=== PATIENT | female | born 1970 | race Caucasian/White ===

== ENCOUNTER 2020-11-25 15:29 | Outpatient (RCR) | payer BC, SELFPAY ==
[2020-11-25] MEDS: COVID-19 VACC, MRNA(PFIZER)/PF 30 MCG/0.3 ML SYRINGE IM (17:25)
[2020-12-16] MEDS: COVID-19 VACC, MRNA(PFIZER)/PF 30 MCG/0.3 ML SYRINGE IM (16:40)
== END 2020-11-25 23:59 ==
LOC: IMMUN 15:29
PROVIDERS: PCP Nurse Practitioner Family; Referring Provider Family Medicine; Visit Provider Family Medicine
DX: Z23 Encounter for immunization (principal)
CPT/HCPCS: 0001A; 0002A; 91300

== ENCOUNTER 2025-04-03 11:00 | Outpatient (RCR) | payer BC, SELFPAY ==
[2025-03-13 10:32] VITALS: BP 180/110; PULSE 120; RESP 18; TEMP 36.1; BMI 55.1
--- NOTE | 2025-03-13 12:14 | PCM.WC.HP ---
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 2 times in 1 month she has developed cellulitis in her lower legs with the second time they actually cultured and found MRSA. She has been on 2 rounds of Bactrim DS and the right leg is almost healed but the left leg is still have some open areas all superficial but they are on the anterior and posterior lower leg. [facility] Home Medications Medication Instructions Recorded Last Taken Type atorvastatin 20 mg tablet 20 mg PO DAILY 03/13/25 Unknown History fluconazole 150 mg tablet 150 mg PO X1 03/13/25 Unknown History fluticasone propionate 50 2 spray intranasal DAILY 03/13/25 Unknown History mcg/actuation nasal spray,suspension furosemide 20 mg tablet 20 mg PO DAILY 03/13/25 Unknown History sulfamethoxazole 800 1 tab PO BID 03/13/25 Unknown History mg-trimethoprim 160 mg tablet sumatriptan succinate 50 mg tablet mg PO 03/13/25 Unknown History Allergy/AdvReac Type Severity Reaction Status Date / Time cat dander Allergy Mild Itching Verified 03/13/25 10:43 Social History Smoking Status: Never smoker ROS Constitutional Constitutional: Reports systems reviewed and no addt'l complaints, except as documented Eyes Eyes: Reports systems reviewed and no addt'l complaints, except as documented ENT HEENT: Reports systems reviewed and no addt'l complaints, except as documented Cardiovascular Cardiovascular: Reports systems reviewed and no addt'l complaints, except as documented Respiratory/Chest Respiratory/Chest: Reports systems reviewed and no addt'l complaints, except as documented Gastrointestinal Gastrointestinal: Reports systems reviewed and no addt'l complaints, except as documented Genitourinary Genitourinary: Reports systems reviewed and no addt'l complaints, except as documented Musculoskeletal Musculoskeletal: Reports systems reviewed and no addt'l complaints, except as documented Integumentary Integumentary: Reports wounds and other Details: Open wound superficial left lower leg anterior and posterior in clusters and on the right leg she has a cluster around the perimeter of the last cellulitis that she experienced. Neurologic Neurologic: Reports systems reviewed and no addt'l complaints, except as documented Psychiatric Psychiatric: Reports systems reviewed and no addt'l complaints, except as documented Endocrine Endocrinology: Reports systems reviewed and no addt'l complaints, except as documented Hematologic/Lymphatic Hematologic/Lymphatic: Reports systems reviewed and no addt'l complaints, except as documented Allergic/Immunologic Allergic/Immunologic: Reports systems reviewed and no addt'l complaints, except as documented Vital Signs Vital Signs Vital Signs: 03/13/25 10:32 Temperature 97 F L Temperature Source Temporal Pulse Rate 120 H Respiratory Rate 18 Blood Pressure 180/110 H Blood Pressure Mean 133 Blood Pressure Source Monitor Blood Pressure Position Semi-Fowlers Blood Pressure Location Left Arm Weight Weight: 352 lb Body Mass Index (BMI) 55.1 Physical Exam Const oriented x3 General Appearance: cooperative Exam Limitations: no limitations HEENT normocephalic Head and Scalp: normal to inspection Face and Sinus: normal facial exam Nose: external nose normal Eyes General Eye: normal appearance of both eyes Neck full ROM Resp normal respiratory effort Effort and Inspection: able to speak in complete sentences Auscultation: clear to auscultation bilaterally Cardio regular rate and regular rhythm Palpation: normal PMI Rate: regular rate Rhythm: regular rhythm GI Auscultation: normoactive bowel sounds Palpation: soft and no hepatosplenomegaly Extremity General Extremity: normal exam except as noted, edema bilateral and other findings Other Details: Open wounds bilateral lower legs superficial Neuro oriented x3 Psych Appearance: grossly normal Speech: normal speech Thought Content: normal thought content Judgement: judgement good Debridement Note Debridement Note Wound debrided: Right anterior lower leg Type of Debridement: Excisional debridement Depth: in the subcutaneous layer Percentage of wound debrided: 100 Instrument Used: 7mm curette Tissue Removed: Fibrin and devitalized tissue Severity: Limited To Skin Breakdown Amount of bleeding with debridement: Mild Bleeding Controlled with: Compression and gauze Post-Debridement Measurements and Additional Note: Post-Debridement Measurements/Treatment SEAN - Nurse 1 - General Ulcer Assessment Start: 03/13/25 10:32 Freq: Status: Active Protocol: SUBHASH Activity Type Activity Date Activity User E-sign Co-sign Detail Recorded Client Recorded Date Recorded By Document 03/13/25 10:32 JUAN [id number] 03/13/25 10:42 JUAN 03/13/25 10:32 SEAN - Today's Visit Information Type of service Initial Visit Arrival Mode Ambulatory Transfer Assistance None Patient Identification Verified (Name & Yes ) Patient Requires Transmission-Based No Precautions Height and Weight Height 5 ft 7 in Weight 352 lb Weight in Pounds 352.0 lbs Body Mass Index (BMI) 55.1 BMI Classification Obese Vital Signs Temperature (97.8 F-99.1 F) 97 F L Temperature Source Temporal Pulse Rate (60-100) 120 H Pulse Location Monitor Respiratory Rate (12-18) 18 Respiratory rate source Observation Blood Pressure (90/60-120/80) 180/110 H Blood Pressure Mean 133 Source Monitor Position Semi-Fowlers Blood Pressure Location Left Arm History Since Last Visit- (Skip if this is Patient's initial visit) Have you changed medications since your No last visit? Any new allergies or adverse reactions No Had a fall/change in ADL's that may No increase risk of falls Signs or symptoms of abuse and/or No neglect since last visit Have you been in the hospital since your No last visit? Has dressing in place as prescribed Yes Has compression in place as prescribed Yes Has offloadiing in place as prescribed N/A Experienced any changes in pain level or No management Pain Scale: 0-10 Numeric Is Patient Pain Free? Yes Lower Extremity Assessment/ Foot Assessment/ Toe Nail Assessment Right -Posterior Tibial Palpable Yes -Dorsalis Pedis Palpable Yes -Extremity Color Hyperpigmented -Hair Growth on Legs Yes -Hair Growth on Toes Yes -Temperature of Extremity Warm -Capillary Refill Less than 3 Seconds -Dependent Rubor No -Blanched when Elevated No -Lipodermatosclerosis No -Other Deformity No -Prior Foot Ulcer No -Charcot Joint No -Prior Amputation No -Thick No -Discolored No -Deformed No -Improper Length & Hygeine Yes Left -Posterior Tibial Palpable Yes -Dorsalis Pedis Palpable Yes -Extremity Color Hyperpigmented -Hair Growth on Legs Yes -Hair Growth on Toes Yes -Temperature of Extremity Warm -Capillary Refill Less than 3 Seconds -Dependent Rubor No -Blanched when Elevated No -Lipodermatosclerosis No -Other Deformity No -Prior Foot Ulcer No -Charcot Joint No -Prior Amputation No -Thick No -Discolored No -Deformed No -Improper Length & Hygeine Yes Neuropathy Assessment Feet - Top Side and Bottom <Entered> (a) Communication Assessment Preferred language Turkish 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 Able to Read Yes Able to Write Yes Communication Tools None Caregiver Communication Skills No Impairment Impairment Right Hearing Abillity Normal Left Hearing Abillity Normal Visual Assistive Devices Glasses Teaching Assessment Preferences Verbal,Written, Demonstration Barriers to Learning None Readiness To Learn Good Willingness to Engage in Self Management Med Activies Readiness to Engage in Self Management Med Activities Anxiety Level Calm Cooperation Cooperative Perception Coherent Interest in Health Problem Asks Questions Education Importance Acknowledges Need Does Patient Smoke tobacco or other No substances Smoking Status Never smoker Is Patient Diabetic Yes Functional Assessment Recent Decline in Ability to Perform Denies Any Declines Assistive Device With Patient No 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 RLE ant -Combined with other wound No -Current Size (cm) - Length 0.1 -Current Size (cm) - Width 0.1 -Current Size (cm) - Depth 0.1 -Total Square Cm 0.01 -Photo Taken Yes -Tunneling No -Undermining/Tunneling No -Circular Undermining No -Exudate Amt Medium -Exudate Type Serosanguineous -Wound Margin Distinct, Outline Attached -Granulation Amt Medium (34-66%) -Granulation Quality [place] -Slough/Fibrin Yes -Necrosis Amt Medium (34-66%) -Necrotic Tissue Type Adherent Slough -Structure Exposed N/A -Texture (Cara-wound Skin Appearance) Assessed, Localized Edema -Moisture (Cara-wound Skin Appearance) Assessed -Color (Cara-wound Skin Appearance) Assessed -Temperature (Cara-wound Skin No Abnormality Appearance) (Pt Warm) -Tenderness on Palpation (Cara-wound No Skin Appearance) -Ulcer Cleansing Wound Cleanser -Foul Odor after Cleansing No -Anesthetic Used 4% Lidocaine Solution 2. LLE anterioir -Combined with other wound No -Current Size (cm) - Length 5 -Current Size (cm) - Width 2.5 -Current Size (cm) - Depth 0.1 -Total Square Cm 12.5 -Photo Taken Yes -Tunneling No -Undermining/Tunneling No -Circular Undermining No -Exudate Amt Large -Exudate Type Serosanguineous -Wound Margin Distinct, Outline Attached -Granulation Amt Medium (34-66%) -Granulation Quality [place] -Slough/Fibrin Yes -Necrosis Amt Medium (34-66%) -Necrotic Tissue Type Adherent Slough -Structure Exposed N/A -Texture (Cara-wound Skin Appearance) Localized Edema -Moisture (Cara-wound Skin Appearance) Assessed -Color (Cara-wound Skin Appearance) Assessed -Temperature (Cara-wound Skin No Abnormality Appearance) (Pt Warm) -Tenderness on Palpation (Cara-wound No Skin Appearance) -Ulcer Cleansing Wound Cleanser -Foul Odor after Cleansing No -Anesthetic Used 4% Lidocaine Solution 1. LLE post ionferior -Combined with other wound No -Current Size (cm) - Length 1.5 -Current Size (cm) - Width 3.5 -Current Size (cm) - Depth 0.1 -Total Square Cm 5.25 -Photo Taken Yes -Tunneling No -Undermining/Tunneling No -Circular Undermining No -Exudate Amt Medium -Exudate Type Serosanguineous -Wound Margin Distinct, Outline Attached -Granulation Amt Medium (34-66%) -Granulation Quality [place] -Slough/Fibrin Yes -Necrosis Amt Medium (34-66%) -Necrotic Tissue Type Adherent Slough -Structure Exposed N/A -Texture (Cara-wound Skin Appearance) Assessed, Localized Edema -Moisture (Cara-wound Skin Appearance) Assessed -Color (Cara-wound Skin Appearance) Assessed -Temperature (Cara-wound Skin No Abnormality Appearance) (Pt Warm) -Tenderness on Palpation (Cara-wound No Skin Appearance) -Ulcer Cleansing Wound Cleanser -Foul Odor after Cleansing No -Anesthetic Used 4% Lidocaine Solution Lower Limb Edema Present Yes Right Calf (cm) 47.5 Right Ankle (cm) 28 Left Calf (cm) 50.2 Left Ankle (cm) 30 WC - Nurse 2 - General Ulcer CM Notes Start: 03/13/25 10:32 Freq: Status: Active Protocol: Activity Type Activity Date Activity User E-sign Co-sign Detail Recorded Client Recorded Date Recorded By Document 03/13/25 11:03 [facility] [id number] 03/13/25 11:19 [facility] 03/13/25 11:03 Wound Center Nurse 2 #4- lle posterior superior -Time 11:13 -Correct Patient Yes -Correct Side, Site, Position Yes -Correct Procedure Yes -Procedure Performed Yes -Type of Procedure Debridement -Clinical Debridement Subcutaneous -Tissue Removed Subcutaneous -Post Debridement (cm) - Length 2 -Post Debridement (cm) - Width 3.5 -Post Debridement (cm) - Depth 0.1 -Total Square (Post) (cm) 7.0 -Area of Debridement (cm) - Length 2 -Area of Debridement (cm) - Width 3.5 -Total Square (Area) (cm) 7.0 -Tunneling No -Undermining/Tunneling No -Circular Undermining No -Wound/Ulcer Outcome Not Healed -Ulcer Cleansing Rinsed/ Irrigated with Saline -Foul Odor after Cleansing No -Bioengineered Tissue No -Bleeding Controlled with Pressure -Treatment Response Procedure Tolerated Well -Debridement - Subq, 1st 20sq cm Yes -Debridement, SubQ, ea addt'l 20sq cm 1 or part thereof 3. RLE ant -Time 11:11 -Correct Patient Yes -Correct Side, Site, Position Yes -Correct Procedure Yes -Procedure Performed Yes -Type of Procedure Debridement -Clinical Debridement Subcutaneous -Tissue Removed Subcutaneous -Post Debridement (cm) - Length 12.5 -Post Debridement (cm) - Width 1 -Post Debridement (cm) - Depth 0.1 -Total Square (Post) (cm) 12.5 -Area of Debridement (cm) - Length 12.5 -Area of Debridement (cm) - Width 1 -Total Square (Area) (cm) 12.5 -Tunneling No -Undermining/Tunneling No -Circular Undermining No -Wound/Ulcer Outcome Not Healed -Ulcer Cleansing Rinsed/ Irrigated with Saline -Foul Odor after Cleansing No -Bioengineered Tissue No -Bleeding Controlled with Pressure -Treatment Response Procedure Tolerated Well -Debridement - Subq, 1st 20sq cm No 2. LLE anterioir -Time 11:11 -Correct Patient Yes -Correct Side, Site, Position Yes -Correct Procedure Yes -Procedure Performed Yes -Type of Procedure Debridement -Clinical Debridement Subcutaneous -Tissue Removed Subcutaneous -Post Debridement (cm) - Length 6.5 -Post Debridement (cm) - Width 2.5 -Post Debridement (cm) - Depth 0.1 -Total Square (Post) (cm) 16.25 -Area of Debridement (cm) - Length 6.5 -Area of Debridement (cm) - Width 2.5 -Total Square (Area) (cm) 16.25 -Tunneling No -Undermining/Tunneling No -Circular Undermining No -Wound/Ulcer Outcome Not Healed -Ulcer Cleansing Rinsed/ Irrigated with Saline -Foul Odor after Cleansing No -Bioengineered Tissue No -Bleeding Controlled with Pressure -Treatment Response Procedure Tolerated Well -Debridement - Subq, 1st 20sq cm No 1. LLE post ionferior -Time 11:15 -Correct Patient Yes -Correct Side, Site, Position Yes -Correct Procedure Yes -Procedure Performed Yes -Type of Procedure Debridement -Clinical Debridement Subcutaneous -Tissue Removed Subcutaneous -Post Debridement (cm) - Length 1.5 -Post Debridement (cm) - Width 4 -Post Debridement (cm) - Depth 0.1 -Total Square (Post) (cm) 6.0 -Area of Debridement (cm) - Length 1.5 -Area of Debridement (cm) - Width 1 -Total Square (Area) (cm) 1.5 -Tunneling No -Undermining/Tunneling No -Circular Undermining No -Wound/Ulcer Outcome Not Healed -Ulcer Cleansing Rinsed/ Irrigated with Saline -Foul Odor after Cleansing No -Bioengineered Tissue No -Bleeding Controlled with Pressure -Treatment Response Procedure Tolerated Well -Debridement - Subq, 1st 20sq cm No Pain Scale: 0-10 Numeric Is Patient Pain Free? Yes - Nurse 3 - General Ulcer D/C NN Start: 03/13/25 10:32 Freq: Status: Active Protocol: Activity Type Activity Date Activity User E-sign Co-sign Detail Recorded Client Recorded Date Recorded By Document 03/13/25 11:27 [place] [id number] 03/13/25 11:33 OH 03/13/25 11:27 Wound Care Center Nurse 3 #4- lle posterior superior -Ulcer Cleansing Soap and Water -Foul Odor after Cleansing No -Negative Pressure Wound Therapy N/A -Primary Dressing Applied Other -Other Dressing xeroform -Primary Dressing Covered/Secured with Dry Gauze,Dry Gauze & Roll Gauze,Secured with Tape -Wound Comment(s) xeroform, tubigrip 3. RLE ant -Primary Dressing Covered/Secured with Dry Gauze,Dry Gauze & Roll Gauze,Secured with Tape 1. LLE post ionferior -Primary Dressing Covered/Secured with Dry Gauze,Dry Gauze & Roll Gauze,Secured with Tape -Wound Comment(s) xeroform to all wounds top with abds BLE -Tubular Bandage Double Layer -Size of Tubigrip Used Size F -Size F ($) 2 Pain Scale: 0-10 Numeric Is Patient Pain Free? Yes WC - Visit Discharge Discharge Condition Stable Ambulatory Status Ambulatory Transportation Private Auto Medication Reconcilliation completed & No provided to patient/care provider Clinical Summary of Care Provided Yes Notes: pt verbalizes understanding of new wound orders. Additional Wound Wound debrided: Left anterior lower leg ulcers Type of Debridement: Excisional debridement Anesthesia Used: 5% Lidocaine Gel Depth: Down to and including healthy tissue and - Percentage of wound debrided: 100 Instrument Used: 7mm curette Tissue Removed: Devitalized tissue and fibrin Severity: Fat Layer Exposed Amount of bleeding with debridement: Mild Bleeding Controlled with: Pressure Patient tolerated procedure: Patient tolerated procedure well Additional Wound Wound debrided: Right posterior inferior ulcer cluster Laterality: Right Type of Debridement: Excisional debridement Anesthesia Used: 5% Lidocaine Gel Depth: Down to and including healthy tissue Percentage of wound debrided: 100 Instrument Used: 7mm curette Tissue Removed: Fibrin and devitalized tissue Severity: Fat Layer Exposed Amount of bleeding with debridement: Mild Bleeding Controlled with: Compression and gauze Patient tolerated procedure: Patient tolerated procedure well Additional Wound Wound debrided: Right posterior superior ulcer cluster Type of Debridement: Excisional debridement Anesthesia Used: 5% Lidocaine Gel Depth: Down to and including healthy tissue Percentage of wound debrided: 100 Instrument Used: 7mm curette Tissue Removed: Fibrin and devitalized tissue Severity: Fat Layer Exposed Amount of bleeding with debridement: Mild Bleeding Controlled with: Compression and gauze Patient tolerated procedure: Patient tolerated procedure well Assessment/Plan Assessment/Plan (1) Edema of both lower legs: CODE(S): R60.0 - Localized edema (2) Peripheral vascular disease: CODE(S): I73.9 - Peripheral vascular disease, unspecified (3) Nonhealing ulcer of right lower leg: CODE(S): L97.919 - Non-pressure chronic ulcer of unspecified part of right lower leg with unspecified severity QUALIFIERS: Non-pressure ulcer stage: with fat layer exposed Qualified Code(s): L97.912 - Non-pressure chronic ulcer of unspecified part of right lower leg with fat layer exposed PLAN: Wash bilateral lower legs with antibacterial soap and water and scrub clean. Pat dry. Apply Xeroform to all open areas cover with moistened gauze and then ABD pads and Kerlix double layer Tubigrip to bilateral lower legs New cultures were obtained after debridement we will call with results Patient is to follow-up in 1 week (4) Nonhealing ulcer of left lower leg: CODE(S): L97.929 - Non-pressure chronic ulcer of unspecified part of left lower leg with unspecified severity QUALIFIERS: Non-pressure ulcer stage: with fat layer exposed Qualified Code(s): L97.922 - Non-pressure chronic ulcer of unspecified part of left lower leg with fat layer exposed
--- NOTE | 2025-03-13 15:39 | WC ---
PHOTO 03/13/25 JESS KHALIL
--- NOTE | 2025-03-13 15:40 | WC ---
PHOTO 03/13/25 Derek DAMON
--- NOTE | 2025-03-13 15:42 | WC ---
PHOTO 03/13/25 GERMAN KHALIL
--- NOTE | 2025-03-13 15:42 | WC ---
PHOTO 03/13/25 LLE POST
--- NOTE | 2025-03-18 09:34 | WC ---
PHOTO 03/13/25 JESS KHALIL
--- NOTE | 2025-03-18 09:35 | WC ---
PHOTO 03/13/25 GERMAN KHALIL
--- NOTE | 2025-03-18 09:36 | WC ---
PHOTO 03/13/25 LLE POST
[2025-03-20 11:37] VITALS: BP 194/109; PULSE 111; RESP 18; TEMP 36.3; BMI 55.1
--- NOTE | 2025-03-20 13:28 | PN.PCM_ITS ---
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 2 times in 1 month she has developed cellulitis in her lower legs with the second time they actually cultured and found MRSA. She has been on 2 rounds of Bactrim DS and the right leg is almost healed but the left leg is still have some open areas all superficial but they are on the anterior and posterior lower leg. Progress of Wound: Culture shows cocci's in her skin so we will start her on metronidazole 3 times a day for 14 days. Regular cultures were negative there were rare for staph. Patient seems to had a reaction to using Hibiclens the washings with her skin she is having a breakout so I suggested maybe buying some defense which has tea tree oil and other more herbal things to keep her skin clean and MRSA resistant. Patient was agreeable to that I think also it might help that she is going to be on the metronidazole that might help with a lot of the skin issues she is having breakouts and sores just developing. Subjective Subjective Patient was agreeable to plan. She loves wearing her compression stockings she sits a lot at work we discussed about getting up and walking around she works from home so that is feasible for her. Objective Data Objective Data Left anterior and left posterior inferior and superior are healing well in the back on the right anterior she also is still open but much smaller than what it was and she is wearing a double layer Tubigrip. Currently we are using Xeroform and that seems to be working the best for her and it is healing her Vital Signs: Vital Signs Temp Pulse Resp BP 97.3 F L 111 H 18 194/109 H 03/20/25 11:37 03/20/25 11:37 03/20/25 11:37 03/20/25 11:37 Weight: 352 lb Body Mass Index (BMI) 55.1 Lab / Micro Data Micro: Microbiology 03/13/25 11:10 Wound - Leg, Left Gram Stain - Final 03/13/25 11:10 Wound - Leg, Left Wound Culture - Final Staphylococcus epidermidis 03/13/25 11:10 Wound - Leg, Left Anaerobic Culture - Final Anaerobic cocci Debridement Note Debridement Note Wound debrided: Right anterior lower leg Type of Debridement: Excisional debridement Depth: in the subcutaneous layer Percentage of wound debrided: 100 Instrument Used: 7mm curette Tissue Removed: Fibrin and devitalized tissue Severity: Limited To Skin Breakdown Amount of bleeding with debridement: Mild Bleeding Controlled with: Compression and gauze Post-Debridement Measurements and Additional Note: Post-Debridement Measurements/Treatment - Nurse 1 - General Ulcer Assessment Start: 03/13/25 10:32 Freq: Status: Active Protocol: SUBHASH Activity Type Activity Date Activity User E-sign Co-sign Detail Recorded Client Recorded Date Recorded By Document 03/13/25 10:32 RB [id number] 03/13/25 10:42 RB Document 03/20/25 11:37 RB [id number] 03/20/25 11:43 RB 03/13/25 03/20/25 10:32 11:37 - Today's Visit Information Type of service Initial Visit 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 ) Arrival Mode Ambulatory Ambulatory Transfer Assistance None None Patient Identification Verified (Name & Yes Yes ) Patient Requires Transmission-Based No No Precautions Height and Weight Height 5 ft 7 in Weight 352 lb Weight in Pounds 352.0 lbs Body Mass Index (BMI) 55.1 55.1 BMI Classification Obese Obese Vital Signs Temperature (97.8 F-99.1 F) 97 F L 97.3 F L Temperature Source Temporal Temporal Pulse Rate (60-100) 120 H 111 H Pulse Location Monitor Monitor Respiratory Rate (12-18) 18 18 Respiratory rate source Observation Observation Blood Pressure (90/60-120/80) 180/110 H 194/109 H Blood Pressure Mean (mm Hg) 133 137 Source Monitor Monitor Position Semi-Fowlers Semi-Fowlers Blood Pressure Location Left Arm Left Arm History Since Last Visit- (Skip if this is Patient's initial visit) Have you changed medications since your No No last visit? Any new allergies or adverse reactions No No Had a fall/change in ADL's that may No No increase risk of falls Signs or symptoms of abuse and/or No No neglect since last visit Have you been in the hospital since your No No last visit? Has dressing in place as prescribed Yes Yes Has compression in place as prescribed Yes Yes Has offloadiing in place as prescribed N/A N/A Experienced any changes in pain level or No No management Left Footwear Regular Shoe Right Footwear Regular Shoe Pain Scale: 0-10 Numeric Is Patient Pain Free? Yes Yes Lower Extremity Assessment/ Foot Assessment/ Toe Nail Assessment Right -Posterior Tibial Palpable Yes -Dorsalis Pedis Palpable Yes -Extremity Color Hyperpigmented -Hair Growth on Legs Yes -Hair Growth on Toes Yes -Temperature of Extremity Warm -Capillary Refill Less than 3 Seconds -Dependent Rubor No -Blanched when Elevated No -Lipodermatosclerosis No -Other Deformity No -Prior Foot Ulcer No -Charcot Joint No -Prior Amputation No -Thick No -Discolored No -Deformed No -Improper Length & Hygeine Yes Left -Posterior Tibial Palpable Yes -Dorsalis Pedis Palpable Yes -Extremity Color Hyperpigmented -Hair Growth on Legs Yes -Hair Growth on Toes Yes -Temperature of Extremity Warm -Capillary Refill Less than 3 Seconds -Dependent Rubor No -Blanched when Elevated No -Lipodermatosclerosis No -Other Deformity No -Prior Foot Ulcer No -Charcot Joint No -Prior Amputation No -Thick No -Discolored No -Deformed No -Improper Length & Hygeine Yes Neuropathy Assessment Feet - Top Side and Bottom <Entered> (a) Communication Assessment Preferred language Malagasy Pipe Threader Required No Able to Read Yes Able to Write Yes Communication Tools None Caregiver Communication Skills No Impairment Impairment Right Hearing Abillity Normal Left Hearing Abillity Normal Visual Assistive Devices Glasses Teaching Assessment Preferences Verbal,Written, Demonstration Barriers to Learning None Readiness To Learn Good Willingness to Engage in Self Management Med Activies Readiness to Engage in Self Management Med Activities Anxiety Level Calm Cooperation Cooperative Perception Coherent Interest in Health Problem Asks Questions Education Importance Acknowledges Need Does Patient Smoke tobacco or other No substances Smoking Status Never smoker Is Patient Diabetic Yes Functional Assessment Recent Decline in Ability to Perform Denies Any Declines Assistive Device With Patient No Culture/Amish/Container Washer Cultural/Amish Needs that may affect No Treatment Plan Would you allow our hospital biological chemist to No meet you for the purpose of spiritual/ emotional support? Container Washer to contact place of islam No Teaching: Wound Center *Welcome to the Wound Center -Person Taught Patient -Teaching Method Discussion, Demonstration -Response to teaching Verbalize Understanding (a) 1 - + throughout WC - Nurse 1 - General Ulcer Measurement Start: 03/13/25 10:32 Freq: Status: Active Protocol: Activity Type Activity Date Activity User E-sign Co-sign Detail Recorded Client Recorded Date Recorded By Document 03/13/25 10:32 RB [id number] 03/13/25 10:42 RB Document 03/20/25 11:37 RB [id number] 03/20/25 11:43 RB 03/13/25 03/20/25 10:32 11:37 Wound Center Nurse 1 #4- lle posterior superior -Combined with other wound No -Current Size (cm) - Length 0.1 -Current Size (cm) - Width 0.1 -Current Size (cm) - Depth 0.1 -Total Square Cm 0.01 -Tunneling No -Undermining/Tunneling No -Circular Undermining No -Exudate Amt Medium -Exudate Type Serosanguineous -Wound Margin Distinct, Outline Attached -Granulation Amt Medium (34-66%) -Granulation Quality [place] -Slough/Fibrin Yes -Necrosis Amt Small (1-33%) -Necrotic Tissue Type Adherent Slough -Structure Exposed N/A -Texture (Cara-wound Skin Appearance) Assessed, Excoriation, Localized Edema -Moisture (Cara-wound Skin Appearance) Assessed -Color (Cara-wound Skin Appearance) Assessed -Temperature (Cara-wound Skin No Abnormality Appearance) (Pt Warm) -Tenderness on Palpation (Cara-wound No Skin Appearance) -Ulcer Cleansing Rinsed/ Irrigated with Saline -Foul Odor after Cleansing No -Anesthetic Used 5% Lidocaine Gel 3. RLE ant -Combined with other wound No No -Current Size (cm) - Length 0.1 0.1 -Current Size (cm) - Width 0.1 0.1 -Current Size (cm) - Depth 0.1 0.1 -Total Square Cm 0.01 0.01 -Photo Taken Yes -Tunneling No No -Undermining/Tunneling No No -Circular Undermining No No -Exudate Amt Medium Medium -Exudate Type Serosanguineous Serosanguineous -Wound Margin Distinct, Distinct, Outline Outline Attached Attached -Granulation Amt Medium (34-66%) Medium (34-66%) -Granulation Quality [place] -Slough/Fibrin Yes Yes -Necrosis Amt Medium (34-66%) Medium (34-66%) -Necrotic Tissue Type Adherent Slough Adherent Slough -Structure Exposed N/A N/A -Texture (Cara-wound Skin Appearance) Assessed, Assessed, Localized Edema Excoriation, Localized Edema -Moisture (Cara-wound Skin Appearance) Assessed Assessed -Color (Cara-wound Skin Appearance) Assessed Assessed -Temperature (Cara-wound Skin No Abnormality No Abnormality Appearance) (Pt Warm) (Pt Warm) -Tenderness on Palpation (Cara-wound No No Skin Appearance) -Ulcer Cleansing Wound Cleanser Wound Cleanser -Foul Odor after Cleansing No No -Anesthetic Used 4% Lidocaine 5% Lidocaine Solution Gel 2. LLE anterioir -Combined with other wound No No -Current Size (cm) - Length 5 3 -Current Size (cm) - Width 2.5 1 -Current Size (cm) - Depth 0.1 0.1 -Total Square Cm 12.5 3 -Photo Taken Yes -Tunneling No No -Undermining/Tunneling No No -Circular Undermining No No -Exudate Amt Large Medium -Exudate Type Serosanguineous Serosanguineous -Wound Margin Distinct, Distinct, Outline Outline Attached Attached -Granulation Amt Medium (34-66%) Medium (34-66%) -Granulation Quality [place] -Slough/Fibrin Yes Yes -Necrosis Amt Medium (34-66%) Medium (34-66%) -Necrotic Tissue Type Adherent Slough Adherent Slough -Structure Exposed N/A N/A -Texture (Cara-wound Skin Appearance) Localized Edema Assessed, Excoriation, Localized Edema -Moisture (Cara-wound Skin Appearance) Assessed Assessed -Color (Cara-wound Skin Appearance) Assessed Assessed -Temperature (Cara-wound Skin No Abnormality No Abnormality Appearance) (Pt Warm) (Pt Warm) -Tenderness on Palpation (Cara-wound No No Skin Appearance) -Ulcer Cleansing Wound Cleanser Wound Cleanser -Foul Odor after Cleansing No No -Anesthetic Used 4% Lidocaine 5% Lidocaine Solution Gel 1. LLE post ionferior -Combined with other wound No No -Current Size (cm) - Length 1.5 0.4 -Current Size (cm) - Width 3.5 1.5 -Current Size (cm) - Depth 0.1 0.1 -Total Square Cm 5.25 0.60 -Photo Taken Yes -Tunneling No No -Undermining/Tunneling No No -Circular Undermining No No -Exudate Amt Medium Medium -Exudate Type Serosanguineous Serosanguineous -Wound Margin Distinct, Distinct, Outline Outline Attached Attached -Granulation Amt Medium (34-66%) Medium (34-66%) -Granulation Quality [place] -Slough/Fibrin Yes Yes -Necrosis Amt Medium (34-66%) Medium (34-66%) -Necrotic Tissue Type Adherent Slough Adherent Slough -Structure Exposed N/A N/A -Texture (Cara-wound Skin Appearance) Assessed, Assessed, Localized Edema Excoriation, Localized Edema -Moisture (Cara-wound Skin Appearance) Assessed Assessed -Color (Cara-wound Skin Appearance) Assessed Assessed -Temperature (Cara-wound Skin No Abnormality No Abnormality Appearance) (Pt Warm) (Pt Warm) -Tenderness on Palpation (Cara-wound No No Skin Appearance) -Ulcer Cleansing Wound Cleanser Wound Cleanser -Foul Odor after Cleansing No No -Anesthetic Used 4% Lidocaine 5% Lidocaine Solution Gel Lower Limb Edema Present Yes Yes Right Calf (cm) 47.5 46 Right Ankle (cm) 28 28.7 Left Calf (cm) 50.2 46.4 Left Ankle (cm) 30 29.2 WC - Nurse 2 - General Ulcer CM Notes Start: 03/13/25 10:32 Freq: Status: Active Protocol: Activity Type Activity Date Activity User E-sign Co-sign Detail Recorded Client Recorded Date Recorded By Document 03/13/25 11:03 [facility] [id number] 03/13/25 11:19 [facility] Document 03/20/25 11:57 [facility] [id number] 03/20/25 12:10 [facility] 03/13/25 03/20/25 11:03 11:57 Wound Center Nurse 2 #4- lle posterior superior -Time 11:13 12:00 -Correct Patient Yes Yes -Correct Side, Site, Position Yes Yes -Correct Procedure Yes Yes -Procedure Performed Yes Yes -Type of Procedure Debridement Debridement -Clinical Debridement Subcutaneous Subcutaneous -Tissue Removed Subcutaneous Subcutaneous -Post Debridement (cm) - Length 2 6 -Post Debridement (cm) - Width 3.5 4 -Post Debridement (cm) - Depth 0.1 0.1 -Total Square (Post) (cm) 7.0 24 -Area of Debridement (cm) - Length 2 6 -Area of Debridement (cm) - Width 3.5 4 -Total Square (Area) (cm) 7.0 24 -Tunneling No No -Undermining/Tunneling No No -Circular Undermining No No -Wound/Ulcer Outcome Not Healed Not Healed -Ulcer Cleansing Rinsed/ Rinsed/ Irrigated with Irrigated with Saline Saline -Foul Odor after Cleansing No No -Bioengineered Tissue No No -Bleeding Controlled with Pressure Pressure -Treatment Response Procedure Procedure Tolerated Well Tolerated Well -Debridement - Subq, 1st 20sq cm Yes No -Debridement, SubQ, ea addt'l 20sq cm 1 or part thereof 3. RLE ant -Time 11:11 12:02 -Correct Patient Yes Yes -Correct Side, Site, Position Yes Yes -Correct Procedure Yes Yes -Procedure Performed Yes Yes -Type of Procedure Debridement Debridement -Clinical Debridement Subcutaneous Subcutaneous -Tissue Removed Subcutaneous Subcutaneous -Post Debridement (cm) - Length 12.5 1 -Post Debridement (cm) - Width 1 0.5 -Post Debridement (cm) - Depth 0.1 0.1 -Total Square (Post) (cm) 12.5 0.5 -Area of Debridement (cm) - Length 12.5 1 -Area of Debridement (cm) - Width 1 0.5 -Total Square (Area) (cm) 12.5 0.5 -Tunneling No No -Undermining/Tunneling No No -Circular Undermining No No -Wound/Ulcer Outcome Not Healed Not Healed -Ulcer Cleansing Rinsed/ Rinsed/ Irrigated with Irrigated with Saline Saline -Foul Odor after Cleansing No No -Bioengineered Tissue No No -Bleeding Controlled with Pressure Pressure -Treatment Response Procedure Procedure Tolerated Well Tolerated Well -Debridement - Subq, 1st 20sq cm No No 2. LLE anterioir -Time 11:11 12:01 -Correct Patient Yes Yes -Correct Side, Site, Position Yes Yes -Correct Procedure Yes Yes -Procedure Performed Yes Yes -Type of Procedure Debridement Debridement -Clinical Debridement Subcutaneous Subcutaneous -Tissue Removed Subcutaneous Subcutaneous -Post Debridement (cm) - Length 6.5 3.5 -Post Debridement (cm) - Width 2.5 1.5 -Post Debridement (cm) - Depth 0.1 0.2 -Total Square (Post) (cm) 16.25 5.25 -Area of Debridement (cm) - Length 6.5 3.5 -Area of Debridement (cm) - Width 2.5 1.5 -Total Square (Area) (cm) 16.25 5.25 -Tunneling No No -Undermining/Tunneling No No -Circular Undermining No No -Wound/Ulcer Outcome Not Healed Not Healed -Ulcer Cleansing Rinsed/ Rinsed/ Irrigated with Irrigated with Saline Saline -Foul Odor after Cleansing No No -Bioengineered Tissue No No -Bleeding Controlled with Pressure Pressure -Treatment Response Procedure Procedure Tolerated Well Tolerated Well -Debridement - Subq, 1st 20sq cm No No 1. LLE post ionferior -Time 11:15 12:02 -Correct Patient Yes Yes -Correct Side, Site, Position Yes Yes -Correct Procedure Yes Yes -Procedure Performed Yes Yes -Type of Procedure Debridement Debridement -Clinical Debridement Subcutaneous Subcutaneous -Tissue Removed Subcutaneous Subcutaneous -Post Debridement (cm) - Length 1.5 1.5 -Post Debridement (cm) - Width 4 3 -Post Debridement (cm) - Depth 0.1 0.1 -Total Square (Post) (cm) 6.0 4.5 -Area of Debridement (cm) - Length 1.5 1.5 -Area of Debridement (cm) - Width 1 3 -Total Square (Area) (cm) 1.5 4.5 -Tunneling No No -Undermining/Tunneling No No -Circular Undermining No No -Wound/Ulcer Outcome Not Healed Not Healed -Ulcer Cleansing Rinsed/ Rinsed/ Irrigated with Irrigated with Saline Saline -Foul Odor after Cleansing No No -Bioengineered Tissue No No -Bleeding Controlled with Pressure Pressure -Treatment Response Procedure Procedure Tolerated Well Tolerated Well -Debridement - Subq, 1st 20sq cm No Yes -Debridement, SubQ, ea addt'l 20sq cm 1 or part thereof Pain Scale: 0-10 Numeric Is Patient Pain Free? Yes Yes - Nurse 3 - General Ulcer D/C NN Start: 03/13/25 10:32 Freq: Status: Active Protocol: Activity Type Activity Date Activity User E-sign Co-sign Detail Recorded Client Recorded Date Recorded By Document 03/13/25 11:27 MT [id number] 03/13/25 11:33 MT Document 03/20/25 12:17 KW [id number] 03/20/25 12:19 KW 03/13/25 03/20/25 11:27 12:17 Wound Care Center Nurse 3 #4- lle posterior superior -Ulcer Cleansing Soap and Water -Foul Odor after Cleansing No -Negative Pressure Wound Therapy N/A -Primary Dressing Applied Other NonAdherent Contact Layer, Silicone Border Foam 4x4 -Other Dressing xeroform -Primary Dressing Covered/Secured with Dry Gauze,Dry Gauze & Roll Gauze,Secured with Tape -Silicone Border Foam 4x4 1 -Wound Comment(s) xeroform, tubigrip 3. RLE ant -Primary Dressing Applied Silicone Border Foam 4x4 -Primary Dressing Covered/Secured with Dry Gauze,Dry Gauze & Roll Gauze,Secured with Tape -Silicone Border Foam 4x4 1 -Wound Comment(s) xeroform to all wounds 2. LLE anterioir -Primary Dressing Applied Silicone Border Foam 4x4 -Silicone Border Foam 4x4 1 1. LLE post ionferior -Primary Dressing Applied Silicone Border Foam 4x4 -Primary Dressing Covered/Secured with Dry Gauze,Dry Gauze & Roll Gauze,Secured with Tape -Silicone Border Foam 4x4 1 -Wound Comment(s) xeroform to all wounds top with abds BLE -Tubular Bandage Double Layer Double Layer -Size of Tubigrip Used Size F Size F -Size F ($) 2 4 Pain Scale: 0-10 Numeric Is Patient Pain Free? Yes Yes WC - Visit Discharge Discharge Condition Stable Stable Ambulatory Status Ambulatory Ambulatory Transportation Private Auto Private Auto Medication Reconcilliation completed & No No provided to patient/care provider Clinical Summary of Care Provided Yes Yes Notes: pt verbalizes understanding of new wound orders. Additional Wound Wound debrided: Left anterior lower leg ulcers Type of Debridement: Excisional debridement Anesthesia Used: 5% Lidocaine Gel Depth: Down to and including healthy tissue and - Percentage of wound debrided: 100 Instrument Used: 7mm curette Tissue Removed: Devitalized tissue and fibrin Severity: Fat Layer Exposed Amount of bleeding with debridement: Mild Bleeding Controlled with: Pressure Patient tolerated procedure: Patient tolerated procedure well Additional Wound Wound debrided: Right posterior inferior ulcer cluster Laterality: Right Type of Debridement: Excisional debridement Anesthesia Used: 5% Lidocaine Gel Depth: Down to and including healthy tissue Percentage of wound debrided: 100 Instrument Used: 7mm curette Tissue Removed: Fibrin and devitalized tissue Severity: Fat Layer Exposed Amount of bleeding with debridement: Mild Bleeding Controlled with: Compression and gauze Patient tolerated procedure: Patient tolerated procedure well Additional Wound Wound debrided: Right posterior superior ulcer cluster Type of Debridement: Excisional debridement Anesthesia Used: 5% Lidocaine Gel Depth: Down to and including healthy tissue Percentage of wound debrided: 100 Instrument Used: 7mm curette Tissue Removed: Fibrin and devitalized tissue Severity: Fat Layer Exposed Amount of bleeding with debridement: Mild Bleeding Controlled with: Compression and gauze Patient tolerated procedure: Patient tolerated procedure well Assessment/Plan Assessment/Plan (1) Edema of both lower legs: CODE(S): R60.0 - Localized edema (2) Peripheral vascular disease: CODE(S): I73.9 - Peripheral vascular disease, unspecified (3) Nonhealing ulcer of right lower leg: CODE(S): L97.919 - Non-pressure chronic ulcer of unspecified part of right lower leg with unspecified severity QUALIFIERS: Non-pressure ulcer stage: with fat layer exposed Qualified Code(s): L97.912 - Non-pressure chronic ulcer of unspecified part of right lower leg with fat layer exposed PLAN: Wash bilateral lower legs with antibacterial soap and water and scrub clean. Pat dry. Apply Xeroform to all open areas cover with moistened gauze and then ABD pads and Kerlix double layer Tubigrip to bilateral lower legs Start metronidazole 250 mg 3 times a day for 14 days Stop the Hibiclens weekly washes and try using a defense soap. Patient is to follow-up in 1 week (4) Nonhealing ulcer of left lower leg: CODE(S): L97.929 - Non-pressure chronic ulcer of unspecified part of left lower leg with unspecified severity QUALIFIERS: Non-pressure ulcer stage: with fat layer exposed Qualified Code(s): L97.922 - Non-pressure chronic ulcer of unspecified part of left lower leg with fat layer exposed
--- NOTE | 2025-03-26 08:53 | VDLE_ITS ---
Reason For Study Reason For Study: Wound RIGHT LEFT CFV is compressible, spontaneous, phasic, competent CFV is compressible, spontaneous, phasic, competent, and demonstrates normal augmentation. and demonstrates normal augmentation. FV is compressible, spontaneous, phasic, competent FV is compressible, spontaneous, phasic, competent and demonstrates normal augmentation. and demonstrates normal augmentation. POP V is compressible, spontaneous, phasic, competent POP V is compressible, spontaneous, phasic, competent and demonstrates normal augmentation. and demonstrates normal augmentation. T/P Trunk is compressible. T/P Trunk is compressible. PTV is compressible. PTV is compressible. RT PerV is compressible. LT PerV is compressible. SFJ is competent and measures 0.75 cm. SFJ is competent and measures 0.78 cm. GSV proximal thigh measures 0.65 x 0.62 cm. GSV proximal thigh measures 0.69 x 0.72 cm. GSV at knee measures 0.60 x 0.59 cm. GSV above knee is competent. GSV is competent throughout. GSV at knee measures 0.65 x 0.65 cm. ASV proximal calf is INCOMPETENT for greater than 0.5 GSV below knee is INCOMPETENT for greater than 0.5 seconds and measures 0.22 x 0.22 cm. seconds. SSV mid calf is competent and measures 0.27 x 0.25 SSV mid calf is competent and measures 0.31 x 0.29 cm. cm. Procedure This is a venous duplex using B-mode, color flow and spectral Doppler. Exam performed in department. Patient was scanned in reverse Trendelenburg position during reflux assessment. A preliminary report was called and/or faxed to . VL/Venous Duplex US - [place] Extrem Interpretation Summary Deep veins of the lower extremities are bilaterally patent and compressible seg mentally. There is no evidence of deep vein thrombosis on either side. Valvular competence appears intact within the p roximal deep venous systems bilaterally. The great saphenous veins appear bilaterally patent and compressible segmentall y. Sapheno-femoral junctions are bilaterally competent . The right great saphenous vein appears segmentally comp etent. The left great saphenous vein appears competent above the knee. The left great saphenous vein appears incompe tent below the knee. Small saphenous veins are patent and competent bilaterally. The accessory saphenous vein in the right proximal calf is incompetent. Ordering Physician: Jael Menjivar Referring Physician: Gabby Mast Performed By: Magy Currie RVT
--- NOTE | 2025-03-26 08:53 | ART_ITS ---
Reason For Study Reason For Study: Wound Procedure A bilateral lower extremity continuous wave Doppler with analog waveform analysis,segmental pressures,and ankle brachial indexes without exercise. Left Segmental Pressures Left brachial= 138mmHg. Left posterior tibial artery = 161mmHg. Left dorsalis pedis artery = 162mmHg. Left digit = 114 mmHg. The left dorsalis pedis waveforms are triphasic. The left posterior tibial artery waveforms are triphasic. Right Segmental Pressures Right brachial= 136mmHg. Right posterior tibial artery = 175mmHg. Right dorsalis pedis artery = 158mmHg. Right digit = 119 mmHg. The right dorsalis pedis waveforms are triphasic. The right posterior tibial artery waveforms are triphasic. Indices The right ankle brachial index by the dorsalis pedis is 1.14. The right ankle brachial index by the posterior tibial artery is 1.27. The right digital-brachial index is 0.86. The left ankle brachial index by the dorsalis pedis is 1.17. The left ankle brachial index by the posterior tibial artery is 1.17. The left digital-brachial index is 0.83. VL/Lower Ext Art Exam w/o Exercis Interpretation Summary Triphasic Doppler waveforms are noted at ankle level bilaterally. Pulse-volume recordings appear diminished at digital level on the left, but satisfactory at all other levels bilaterally. Resting an kle-brachial indices are normal bilaterally. Digital-brachial indices are normal bilaterally. There is no evidence of significant arterial occlusive disease in the lower ext remities bilaterally. Ordering Physician: Jael Menjivar Referring Physician: Gabby Mast Performed By: Magy Currie RVT
[2025-03-27 11:08] VITALS: BP 147/79; PULSE 90; RESP 18; TEMP 36.4; BMI 55.1
--- NOTE | 2025-03-27 12:17 | PCM.WC.PN ---
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 2 times in 1 month she has developed cellulitis in her lower legs with the second time they actually cultured and found MRSA. She has been on 2 rounds of Bactrim DS and the right leg is almost healed but the left leg is still have some open areas all superficial but they are on the anterior and posterior lower leg. Progress of Wound: Culture shows cocci's in her skin so we will start her on metronidazole 3 times a day for 14 days. Regular cultures were negative there were rare for staph. Patient seems to had a reaction to using Hibiclens the washings with her skin she is having a breakout so I suggested maybe buying some defense which has tea tree oil and other more herbal things to keep her skin clean and MRSA resistant. Patient was agreeable to that I think also it might help that she is going to be on the metronidazole that might help with a lot of the skin issues she is having breakouts and sores just developing. The vascular studies were negative for any kind of of blockages in her veins so it is probably strictly infection that was causing the sores on her legs. Patient states she could not get the defend so she has been continue using the Hibiclens and she did not break out this week she is only done it once a week now and it seems to be helping her skin condition she also found some Ion with antibacterial soap and it and she has been using that and it made a difference in her skin. Subjective Subjective Patient has been compliant with her dressing changes and it looks very good we did selective debridement today she is almost healed probably another week or so she should be done Objective Data Objective Data Currently we are using the Xeroform on top of her open areas and she still has that cobblestoning type skin that is healing well and I told her she needs to be really up on the computer but the compression that is really what is going to help stop all this to besides the skin cleanliness. Vital Signs: Vital Signs Temp Pulse Resp BP 97.5 F L 90 18 147/79 H 03/27/25 11:08 03/27/25 11:08 03/27/25 11:08 03/27/25 11:08 Weight: 352 lb Body Mass Index (BMI) 55.1 Lab / Micro Data Micro: Microbiology 03/13/25 11:10 Wound - Leg, Left Gram Stain - Final 03/13/25 11:10 Wound - Leg, Left Wound Culture - Final Staphylococcus epidermidis 03/13/25 11:10 Wound - Leg, Left Anaerobic Culture - Final Anaerobic cocci Radiography Diagnostic Testing: Radiology Impression Extremity Arterial Study 03/26/25 08:53 Interpretation Summary Triphasic Doppler waveforms are noted at ankle level bilaterally. Pulse-volume recordings appear diminished at digital level on the left, but satisfactory at all other levels bilaterally. Resting ankle-brachial indices are normal bilaterally. Digital-brachial indices are normal bilaterally. There is no evidence of significant arterial occlusive disease in the lower extremities bilaterally. Ordering Physician: Jael Menjivar Referring Physician: Gabby Mast Performed By: Magy Currie RVT Venous Doppler Study 03/26/25 08:53 Interpretation Summary Deep veins of the lower extremities are bilaterally patent and compressible segmentally. There is no evidence of deep vein thrombosis on either side. Valvular competence appears intact within the proximal deep venous systems bilaterally. The great saphenous veins appear bilaterally patent and compressible segmentally. Sapheno-femoral junctions are bilaterally competent . The right great saphenous vein appears segmentally competent. The left great saphenous vein appears competent above the knee. The left great saphenous vein appears incompetent below the knee. Small saphenous veins are patent and competent bilaterally. The accessory saphenous vein in the right proximal calf is incompetent. Ordering Physician: Jael Menjivar Referring Physician: Gabby Mast Performed By: Magy Currie RVT Physical Exam Const oriented x3 General Appearance: cooperative Exam Limitations: no limitations HEENT normocephalic Head and Scalp: normal to inspection Face and Sinus: normal facial exam Nose: external nose normal Eyes General Eye: normal appearance of both eyes Neck full ROM Resp normal respiratory effort Effort and Inspection: able to speak in complete sentences Auscultation: clear to auscultation bilaterally Cardio regular rate and regular rhythm Palpation: normal PMI Rate: regular rate Rhythm: regular rhythm GI Auscultation: normoactive bowel sounds Palpation: soft and no hepatosplenomegaly Extremity General Extremity: normal exam except as noted, edema bilateral and other findings Other Details: Open wounds bilateral lower legs superficial Neuro oriented x3 Psych Appearance: grossly normal Speech: normal speech Thought Content: normal thought content Judgement: judgement good Debridement Note Debridement Note Wound debrided: Bilateral lower leg cluster wounds ulcers that blister Type of Debridement: Selective debridement Anesthesia Used: 5% Lidocaine Gel Depth: in the subcutaneous layer Percentage of wound debrided: 100 Instrument Used: - (Using gauze) Tissue Removed: Fibrin Severity: Limited To Skin Breakdown Amount of bleeding with debridement: Mild Bleeding Controlled with: Compression and gauze Patient tolerated procedure: Patient tolerated procedure well Post-Debridement Measurements and Additional Note: Post-Debridement Measurements/Treatment WC - Nurse 1 - General Ulcer Assessment Start: 03/13/25 10:32 Freq: Status: Active Protocol: SUBHASH Activity Type Activity Date Activity User E-sign Co-sign Detail Recorded Client Recorded Date Recorded By Document 03/13/25 10:32 RB [id number] 03/13/25 10:42 RB Document 03/20/25 11:37 RB [id number] 03/20/25 11:43 RB Document 03/27/25 11:08 DL [id number] 03/27/25 11:18 DL 03/13/25 03/20/25 03/27/25 10:32 11:37 11:08 SEAN - Today's Visit Information Type of service Initial Visit Follow-up Visit Follow-up Visit (Physician/RN STARS (Physician/RN STARS ) ) Arrival Mode Ambulatory Ambulatory Ambulatory Transfer Assistance None None None Patient Identification Verified (Name & Yes Yes Yes ) Patient Requires Transmission-Based No No No Precautions Height and Weight Height 5 ft 7 in Weight 352 lb Weight in Pounds 352.0 lbs Body Mass Index (BMI) 55.1 55.1 55.1 BMI Classification Obese Obese Obese Vital Signs Temperature (97.8 F-99.1 F) 97 F L 97.3 F L 97.5 F L Temperature Source Temporal Temporal Temporal Pulse Rate (60-100) 120 H 111 H 90 Pulse Location Monitor Monitor Monitor Respiratory Rate (12-18) 18 18 18 Respiratory rate source Observation Observation Observation Blood Pressure (90/60-120/80) 180/110 H 194/109 H 147/79 H Blood Pressure Mean (mm Hg) 133 137 101 Source Monitor Monitor Monitor Position Semi-Fowlers Semi-Fowlers Blood Pressure Location Left Arm Left Arm History Since Last Visit- (Skip if this is Patient's initial visit) Have you changed medications since your No No No last visit? Any new allergies or adverse reactions No No No Had a fall/change in ADL's that may No No No increase risk of falls Signs or symptoms of abuse and/or No No No neglect since last visit Have you been in the hospital since your No No No last visit? Has dressing in place as prescribed Yes Yes Yes Has compression in place as prescribed Yes Yes No Has offloadiing in place as prescribed N/A N/A N/A Experienced any changes in pain level or No No No management Left Footwear Regular Shoe Right Footwear Regular Shoe Pain Scale: 0-10 Numeric Is Patient Pain Free? Yes Yes Yes Lower Extremity Assessment/ Foot Assessment/ Toe Nail Assessment Right -Posterior Tibial Palpable Yes -Dorsalis Pedis Palpable Yes -Extremity Color Hyperpigmented -Hair Growth on Legs Yes -Hair Growth on Toes Yes -Temperature of Extremity Warm -Capillary Refill Less than 3 Seconds -Dependent Rubor No -Blanched when Elevated No -Lipodermatosclerosis No -Other Deformity No -Prior Foot Ulcer No -Charcot Joint No -Prior Amputation No -Thick No -Discolored No -Deformed No -Improper Length & Hygeine Yes Left -Posterior Tibial Palpable Yes -Dorsalis Pedis Palpable Yes -Extremity Color Hyperpigmented -Hair Growth on Legs Yes -Hair Growth on Toes Yes -Temperature of Extremity Warm -Capillary Refill Less than 3 Seconds -Dependent Rubor No -Blanched when Elevated No -Lipodermatosclerosis No -Other Deformity No -Prior Foot Ulcer No -Charcot Joint No -Prior Amputation No -Thick No -Discolored No -Deformed No -Improper Length & Hygeine Yes Neuropathy Assessment Feet - Top Side and Bottom <Entered> (a) Communication Assessment Preferred language [place]ian Money Room Supervisor Required No Able to Read Yes Able to Write Yes Communication Tools None Caregiver Communication Skills No Impairment Impairment Right Hearing Abillity Normal Left Hearing Abillity Normal Visual Assistive Devices Glasses Teaching Assessment Preferences Verbal,Written, Demonstration Barriers to Learning None Readiness To Learn Good Willingness to Engage in Self Management Med Activies Readiness to Engage in Self Management Med Activities Anxiety Level Calm Cooperation Cooperative Perception Coherent Interest in Health Problem Asks Questions Education Importance Acknowledges Need Does Patient Smoke tobacco or other No substances Smoking Status Never smoker Is Patient Diabetic Yes Functional Assessment Recent Decline in Ability to Perform Denies Any Declines Assistive Device With Patient No Culture/Jain/Penology Teacher Cultural/Jain Needs that may affect No Treatment Plan Would you allow our hospital community outreach manager to No meet you for the purpose of spiritual/ emotional support? Penology Teacher to contact place of taoism No Teaching: Wound Center *Welcome to the Wound Center -Person Taught Patient -Teaching Method Discussion, Demonstration -Response to teaching Verbalize Understanding (a) 1 - + throughout WC - Nurse 1 - General Ulcer Measurement Start: 03/13/25 10:32 Freq: Status: Active Protocol: Activity Type Activity Date Activity User E-sign Co-sign Detail Recorded Client Recorded Date Recorded By Document 03/13/25 10:32 RB [id number] 03/13/25 10:42 RB Document 03/20/25 11:37 RB [id number] 03/20/25 11:43 RB Document 03/27/25 11:08 DL [id number] 03/27/25 11:18 DL 03/13/25 03/20/25 03/27/25 10:32 11:37 11:08 Wound Center Nurse 1 #4- lle posterior superior -Combined with other wound No -Current Size (cm) - Length 0.1 0.1 -Current Size (cm) - Width 0.1 0.1 -Current Size (cm) - Depth 0.1 0.1 -Total Square Cm 0.01 0.01 -Tunneling No -Undermining/Tunneling No -Circular Undermining No -Exudate Amt Medium None Present -Exudate Type Serosanguineous -Wound Margin Distinct, Outline Attached -Granulation Amt Medium (34-66%) -Granulation Quality [place] -Slough/Fibrin Yes No -Necrosis Amt Small (1-33%) None Present (0 %) -Necrotic Tissue Type Adherent Slough -Structure Exposed N/A -Texture (Cara-wound Skin Appearance) Assessed, Assessed Excoriation, Localized Edema -Moisture (Cara-wound Skin Appearance) Assessed Assessed -Color (Cara-wound Skin Appearance) Assessed Assessed -Temperature (Cara-wound Skin No Abnormality No Abnormality Appearance) (Pt Warm) (Pt Warm) -Tenderness on Palpation (Cara-wound No No Skin Appearance) -Ulcer Cleansing Rinsed/ Soap and Water Irrigated with Saline -Foul Odor after Cleansing No No -Anesthetic Used 5% Lidocaine 5% Lidocaine Gel Gel 1. LLE post ionferior -Combined with other wound No No -Current Size (cm) - Length 1.5 0.4 0.1 -Current Size (cm) - Width 3.5 1.5 0.1 -Current Size (cm) - Depth 0.1 0.1 0.1 -Total Square Cm 5.25 0.60 0.01 -Photo Taken Yes -Tunneling No No -Undermining/Tunneling No No -Circular Undermining No No -Exudate Amt Medium Medium None Present -Exudate Type Serosanguineous Serosanguineous -Wound Margin Distinct, Distinct, Outline Outline Attached Attached -Granulation Amt Medium (34-66%) Medium (34-66%) None Present (0 %) -Granulation Quality [place] -Slough/Fibrin Yes Yes -Necrosis Amt Medium (34-66%) Medium (34-66%) None Present (0 %) -Necrotic Tissue Type Adherent Slough Adherent Slough -Structure Exposed N/A N/A -Texture (Cara-wound Skin Appearance) Assessed, Assessed, Assessed Localized Edema Excoriation, Localized Edema -Moisture (Cara-wound Skin Appearance) Assessed Assessed Assessed -Color (Cara-wound Skin Appearance) Assessed Assessed Assessed -Temperature (Cara-wound Skin No Abnormality No Abnormality No Abnormality Appearance) (Pt Warm) (Pt Warm) (Pt Warm) -Tenderness on Palpation (Cara-wound No No No Skin Appearance) -Ulcer Cleansing Wound Cleanser Wound Cleanser Soap and Water -Foul Odor after Cleansing No No No -Anesthetic Used 4% Lidocaine 5% Lidocaine 5% Lidocaine Solution Gel Gel 3. RLE ant -Combined with other wound No No -Current Size (cm) - Length 0.1 0.1 1.9 -Current Size (cm) - Width 0.1 0.1 0.7 -Current Size (cm) - Depth 0.1 0.1 0.1 -Total Square Cm 0.01 0.01 1.33 -Photo Taken Yes -Tunneling No No -Undermining/Tunneling No No -Circular Undermining No No -Exudate Amt Medium Medium Small -Exudate Type Serosanguineous Serosanguineous Serosanguineous -Wound Margin Distinct, Distinct, Outline Outline Attached Attached -Granulation Amt Medium (34-66%) Medium (34-66%) -Granulation Quality [place] -Slough/Fibrin Yes Yes -Necrosis Amt Medium (34-66%) Medium (34-66%) Small (1-33%) -Necrotic Tissue Type Adherent Slough Adherent Slough Adherent Slough -Structure Exposed N/A N/A -Texture (Cara-wound Skin Appearance) Assessed, Assessed, Assessed Localized Edema Excoriation, Localized Edema -Moisture (Cara-wound Skin Appearance) Assessed Assessed Assessed -Color (Cara-wound Skin Appearance) Assessed Assessed Assessed -Temperature (Cara-wound Skin No Abnormality No Abnormality No Abnormality Appearance) (Pt Warm) (Pt Warm) (Pt Warm) -Tenderness on Palpation (Cara-wound No No No Skin Appearance) -Ulcer Cleansing Wound Cleanser Wound Cleanser Soap and Water -Foul Odor after Cleansing No No No -Anesthetic Used 4% Lidocaine 5% Lidocaine 5% Lidocaine Solution Gel Gel 2. LLE anterioir -Combined with other wound No No -Current Size (cm) - Length 5 3 1.5 -Current Size (cm) - Width 2.5 1 0.3 -Current Size (cm) - Depth 0.1 0.1 0.1 -Total Square Cm 12.5 3 0.45 -Photo Taken Yes -Tunneling No No -Undermining/Tunneling No No -Circular Undermining No No -Exudate Amt Large Medium Small -Exudate Type Serosanguineous Serosanguineous -Wound Margin Distinct, Distinct, Outline Outline Attached Attached -Granulation Amt Medium (34-66%) Medium (34-66%) Small (1-33%) -Granulation Quality [place] -Slough/Fibrin Yes Yes -Necrosis Amt Medium (34-66%) Medium (34-66%) Small (1-33%) -Necrotic Tissue Type Adherent Slough Adherent Slough Adherent Slough -Structure Exposed N/A N/A -Texture (Cara-wound Skin Appearance) Localized Edema Assessed, Assessed Excoriation, Localized Edema -Moisture (Cara-wound Skin Appearance) Assessed Assessed Assessed -Color (Cara-wound Skin Appearance) Assessed Assessed Assessed -Temperature (Cara-wound Skin No Abnormality No Abnormality No Abnormality Appearance) (Pt Warm) (Pt Warm) (Pt Warm) -Tenderness on Palpation (Cara-wound No No No Skin Appearance) -Ulcer Cleansing Wound Cleanser Wound Cleanser Soap and Water -Foul Odor after Cleansing No No No -Anesthetic Used 4% Lidocaine 5% Lidocaine 5% Lidocaine Solution Gel Gel Lower Limb Edema Present Yes Yes Right Calf (cm) 47.5 46 46 Right Ankle (cm) 28 28.7 27.7 Left Calf (cm) 50.2 46.4 46.3 Left Ankle (cm) 30 29.2 30 WC - Nurse 2 - General Ulcer CM Notes Start: 03/13/25 10:32 Freq: Status: Active Protocol: Activity Type Activity Date Activity User E-sign Co-sign Detail Recorded Client Recorded Date Recorded By Document 03/13/25 11:03 [facility] [id number] 03/13/25 11:19 [facility] Document 03/20/25 11:57 [facility] [id number] 03/20/25 12:10 [facility] Document 03/27/25 11:33 [facility] [id number] 03/27/25 11:38 [facility] 03/13/25 03/20/25 03/27/25 11:03 11:57 11:33 Wound Center Nurse 2 #4- lle posterior superior -Time 11:13 12:00 11:34 -Correct Patient Yes Yes -Correct Side, Site, Position Yes Yes -Correct Procedure Yes Yes -Procedure Performed Yes Yes No -Type of Procedure Debridement Debridement -Clinical Debridement Subcutaneous Subcutaneous -Tissue Removed Subcutaneous Subcutaneous -Post Debridement (cm) - Length 2 6 0 -Post Debridement (cm) - Width 3.5 4 0 -Post Debridement (cm) - Depth 0.1 0.1 0 -Total Square (Post) (cm) 7.0 24 0 -Area of Debridement (cm) - Length 2 6 0 -Area of Debridement (cm) - Width 3.5 4 0 -Total Square (Area) (cm) 7.0 24 0 -Tunneling No No -Undermining/Tunneling No No -Circular Undermining No No -Wound/Ulcer Outcome Not Healed Not Healed Healed- Epithelialized -Ulcer Cleansing Rinsed/ Rinsed/ Irrigated with Irrigated with Saline Saline -Foul Odor after Cleansing No No -Bioengineered Tissue No No -Bleeding Controlled with Pressure Pressure NA -Treatment Response Procedure Procedure Tolerated Well Tolerated Well -Debridement - Subq, 1st 20sq cm Yes No -Debridement, SubQ, ea addt'l 20sq cm 1 or part thereof 1. LLE post ionferior -Time 11:15 12:02 11:34 -Correct Patient Yes Yes -Correct Side, Site, Position Yes Yes -Correct Procedure Yes Yes -Procedure Performed Yes Yes No -Type of Procedure Debridement Debridement -Clinical Debridement Subcutaneous Subcutaneous -Tissue Removed Subcutaneous Subcutaneous -Post Debridement (cm) - Length 1.5 1.5 -Post Debridement (cm) - Width 4 3 -Post Debridement (cm) - Depth 0.1 0.1 -Total Square (Post) (cm) 6.0 4.5 -Area of Debridement (cm) - Length 1.5 1.5 -Area of Debridement (cm) - Width 1 3 -Total Square (Area) (cm) 1.5 4.5 -Tunneling No No -Undermining/Tunneling No No -Circular Undermining No No -Wound/Ulcer Outcome Not Healed Not Healed Healed- Epithelialized -Ulcer Cleansing Rinsed/ Rinsed/ Irrigated with Irrigated with Saline Saline -Foul Odor after Cleansing No No -Bioengineered Tissue No No -Bleeding Controlled with Pressure Pressure NA -Treatment Response Procedure Procedure Tolerated Well Tolerated Well -Debridement - Subq, 1st 20sq cm No Yes -Debridement, SubQ, ea addt'l 20sq cm 1 or part thereof 3. RLE ant -Time 11:11 12:02 11:36 -Correct Patient Yes Yes Yes -Correct Side, Site, Position Yes Yes Yes -Correct Procedure Yes Yes Yes -Procedure Performed Yes Yes Yes -Type of Procedure Debridement Debridement Debridement -Clinical Debridement Subcutaneous Subcutaneous Epidermis / Dermis -Tissue Removed Subcutaneous Subcutaneous Epidermis, Dermis -Post Debridement (cm) - Length 12.5 1 2.5 -Post Debridement (cm) - Width 1 0.5 0.1 -Post Debridement (cm) - Depth 0.1 0.1 0.1 -Total Square (Post) (cm) 12.5 0.5 0.25 -Area of Debridement (cm) - Length 12.5 1 2.5 -Area of Debridement (cm) - Width 1 0.5 0.1 -Total Square (Area) (cm) 12.5 0.5 0.25 -Tunneling No No No -Undermining/Tunneling No No No -Circular Undermining No No No -Wound/Ulcer Outcome Not Healed Not Healed Not Healed -Ulcer Cleansing Rinsed/ Rinsed/ Rinsed/ Irrigated with Irrigated with Irrigated with Saline Saline Saline -Foul Odor after Cleansing No No No -Bioengineered Tissue No No No -Bleeding Controlled with Pressure Pressure Pressure -Treatment Response Procedure Procedure Procedure Tolerated Well Tolerated Well Tolerated Well -Debridement - Open, 1st 20sq cm Yes -Debridement, Open, ea addt'l 20sq cm 5 or part thereof -Debridement - Subq, 1st 20sq cm No No 2. LLE anterioir -Time 11:11 12:01 11:36 -Correct Patient Yes Yes Yes -Correct Side, Site, Position Yes Yes Yes -Correct Procedure Yes Yes Yes -Procedure Performed Yes Yes Yes -Type of Procedure Debridement Debridement Debridement -Clinical Debridement Subcutaneous Subcutaneous Epidermis / Dermis -Tissue Removed Subcutaneous Subcutaneous Epidermis, Dermis -Post Debridement (cm) - Length 6.5 3.5 10 -Post Debridement (cm) - Width 2.5 1.5 12 -Post Debridement (cm) - Depth 0.1 0.2 0.1 -Total Square (Post) (cm) 16.25 5.25 120 -Area of Debridement (cm) - Length 6.5 3.5 10 -Area of Debridement (cm) - Width 2.5 1.5 12 -Total Square (Area) (cm) 16.25 5.25 120 -Tunneling No No No -Undermining/Tunneling No No No -Circular Undermining No No No -Wound/Ulcer Outcome Not Healed Not Healed Not Healed -Ulcer Cleansing Rinsed/ Rinsed/ Irrigated with Irrigated with Saline Saline -Foul Odor after Cleansing No No -Bioengineered Tissue No No -Bleeding Controlled with Pressure Pressure Pressure -Treatment Response Procedure Procedure Procedure Tolerated Well Tolerated Well Tolerated Well -Debridement - Open, 1st 20sq cm No -Debridement - Subq, 1st 20sq cm No No Pain Scale: 0-10 Numeric Is Patient Pain Free? Yes Yes Yes WC - Nurse 3 - General Ulcer D/C NN Start: 03/13/25 10:32 Freq: Status: Active Protocol: Activity Type Activity Date Activity User E-sign Co-sign Detail Recorded Client Recorded Date Recorded By Document 03/13/25 11:27 MT [id number] 03/13/25 11:33 MT Document 03/20/25 12:17 KW [id number] 03/20/25 12:19 KW Document 03/27/25 11:49 BMF [id number] 03/27/25 11:50 BMF 03/13/25 03/20/25 03/27/25 11:27 12:17 11:49 Wound Care Center Nurse 3 #4- lle posterior superior -Ulcer Cleansing Soap and Water -Foul Odor after Cleansing No -Negative Pressure Wound Therapy N/A -Primary Dressing Applied Other NonAdherent Contact Layer, Silicone Border Foam 4x4 -Other Dressing xeroform -Primary Dressing Covered/Secured with Dry Gauze,Dry Gauze & Roll Gauze,Secured with Tape -Silicone Border Foam 4x4 1 -Wound Comment(s) xeroform, tubigrip 1. LLE post ionferior -Primary Dressing Applied Silicone Border Foam 4x4 -Primary Dressing Covered/Secured with Dry Gauze,Dry Gauze & Roll Gauze,Secured with Tape -Silicone Border Foam 4x4 1 -Wound Comment(s) xeroform to all wounds top with abds 3. RLE ant -Ulcer Cleansing Rinsed/ Irrigated with Saline -Foul Odor after Cleansing No -Primary Dressing Applied Silicone Border NonAdherent Foam 4x4 Contact Layer, Silicone Border Foam 4x4 -Primary Dressing Covered/Secured with Dry Gauze,Dry Gauze & Roll Gauze,Secured with Tape -Silicone Border Foam 4x4 1 1 -Wound Comment(s) xeroform to all wounds 2. LLE anterioir -Ulcer Cleansing Rinsed/ Irrigated with Saline -Foul Odor after Cleansing No -Primary Dressing Applied Silicone Border NonAdherent Foam 4x4 Contact Layer -Other Dressing used pts own foam/silicone border drsg -Silicone Border Foam 4x4 1 BLE -Tubular Bandage Double Layer Double Layer Double Layer -Size of Tubigrip Used Size F Size F Size F -Size F ($) 2 4 2 Treatment Response Procedure Tolerated Well Pain Scale: 0-10 Numeric Is Patient Pain Free? Yes Yes Yes WC - Visit Discharge Discharge Condition Stable Stable Stable Ambulatory Status Ambulatory Ambulatory Ambulatory Transportation Private Auto Private Auto Private Auto Medication Reconcilliation completed & No No provided to patient/care provider Clinical Summary of Care Provided Yes Yes Notes: pt verbalizes understanding of new wound orders. Assessment/Plan Assessment/Plan (1) Edema of both lower legs: CODE(S): R60.0 - Localized edema (2) Peripheral vascular disease: CODE(S): I73.9 - Peripheral vascular disease, unspecified (3) Nonhealing ulcer of right lower leg: CODE(S): L97.919 - Non-pressure chronic ulcer of unspecified part of right lower leg with unspecified severity QUALIFIERS: Non-pressure ulcer stage: with fat layer exposed Qualified Code(s): L97.912 - Non-pressure chronic ulcer of unspecified part of right lower leg with fat layer exposed PLAN: Wash bilateral lower legs with antibacterial soap and water and scrub clean. Pat dry. Apply Xeroform to all open areas cover with moistened gauze and then ABD pads and Kerlix double layer Tubigrip to bilateral lower legs Start metronidazole 250 mg 3 times a day for 14 days Continue the Hibiclens weekly washes and try using a defense soap Or other antibacterial soaps like Dove with antibacterial and it Patient is to follow-up in 1 week (4) Nonhealing ulcer of left lower leg: CODE(S): L97.929 - Non-pressure chronic ulcer of unspecified part of left lower leg with unspecified severity QUALIFIERS: Non-pressure ulcer stage: with fat layer exposed Qualified Code(s): L97.922 - Non-pressure chronic ulcer of unspecified part of left lower leg with fat layer exposed
[2025-04-03 11:15] VITALS: BP 149/79; PULSE 87; RESP 18; TEMP 36.4; BMI 55.1
--- NOTE | 2025-04-03 12:15 | PN.PCM_ITS ---
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 2 times in 1 month she has developed cellulitis in her lower legs with the second time they actually cultured and found MRSA. She has been on 2 rounds of Bactrim DS and the right leg is almost healed but the left leg is still have some open areas all superficial but they are on the anterior and posterior lower leg. Progress of Wound: Patient healed by Tuesday she states and she came in with no dressings they look good she continues to wear compression stockings and continues to wash on her skin to keep the MRSA and staph infections down. Patient is discharged from the wound center he can follow-up as needed Subjective Subjective Patient was very grateful and appreciated all the teachings that we gave her. Objective Data Objective Data Wounds all healed on her legs patient will be discharged from the wound center Vital Signs: Vital Signs Temp Pulse Resp BP 97.5 F L 87 18 149/79 H 04/03/25 11:15 04/03/25 11:15 04/03/25 11:15 04/03/25 11:15 Weight: 352 lb Body Mass Index (BMI) 55.1 Lab / Micro Data Micro: Microbiology 03/13/25 11:10 Wound - Leg, Left Gram Stain - Final 03/13/25 11:10 Wound - Leg, Left Wound Culture - Final Staphylococcus epidermidis 03/13/25 11:10 Wound - Leg, Left Anaerobic Culture - Final Anaerobic cocci Physical Exam Const oriented x3 General Appearance: cooperative Exam Limitations: no limitations HEENT normocephalic Head and Scalp: normal to inspection Face and Sinus: normal facial exam Nose: external nose normal Eyes General Eye: normal appearance of both eyes Neck full ROM Resp normal respiratory effort Effort and Inspection: able to speak in complete sentences Auscultation: clear to auscultation bilaterally Cardio regular rate and regular rhythm Palpation: normal PMI Rate: regular rate Rhythm: regular rhythm GI Auscultation: normoactive bowel sounds Palpation: soft and no hepatosplenomegaly Extremity General Extremity: normal exam except as noted, edema bilateral and other findings Other Details: Open wounds bilateral lower legs superficial Neuro oriented x3 Psych Appearance: grossly normal Speech: normal speech Thought Content: normal thought content Judgement: judgement good Debridement Note Debridement Note No debridement was completed: No debridement was completed today Post-Debridement Measurements and Additional Note: Post-Debridement Measurements/Treatment - Nurse 1 - General Ulcer Assessment Start: 03/13/25 10:32 Freq: Status: Active Protocol: SUBHASH Activity Type Activity Date Activity User E-sign Co-sign Detail Recorded Client Recorded Date Recorded By Document 03/13/25 10:32 RB [id number] 03/13/25 10:42 RB Document 03/20/25 11:37 RB [id number] 03/20/25 11:43 RB Document 03/27/25 11:08 DL [id number] 03/27/25 11:18 DL Document 04/03/25 11:15 DL [id number] 04/03/25 11:21 DL 03/13/25 03/20/25 03/27/25 10:32 11:37 11:08 - Today's Visit Information Type of service Initial Visit Follow-up Visit Follow-up Visit (Physician/DESIGN ENGINEER (Physician/DESIGN ENGINEER ) ) Arrival Mode Ambulatory Ambulatory Ambulatory Transfer Assistance None None None Patient Identification Verified (Name & Yes Yes Yes ) Patient Requires Transmission-Based No No No Precautions Height and Weight Height 5 ft 7 in Weight 352 lb Weight in Pounds 352.0 lbs Body Mass Index (BMI) 55.1 55.1 55.1 BMI Classification Obese Obese Obese Vital Signs Temperature (97.8 F-99.1 F) 97 F L 97.3 F L 97.5 F L Temperature Source Temporal Temporal Temporal Pulse Rate (60-100) 120 H 111 H 90 Pulse Location Monitor Monitor Monitor Respiratory Rate (12-18) 18 18 18 Respiratory rate source Observation Observation Observation Blood Pressure (90/60-120/80) 180/110 H 194/109 H 147/79 H Blood Pressure Mean (mm Hg) 133 137 101 Source Monitor Monitor Monitor Position Semi-Fowlers Semi-Fowlers Blood Pressure Location Left Arm Left Arm History Since Last Visit- (Skip if this is Patient's initial visit) Have you changed medications since your No No No last visit? Any new allergies or adverse reactions No No No Had a fall/change in ADL's that may No No No increase risk of falls Signs or symptoms of abuse and/or No No No neglect since last visit Have you been in the hospital since your No No No last visit? Has dressing in place as prescribed Yes Yes Yes Has compression in place as prescribed Yes Yes No Has offloadiing in place as prescribed N/A N/A N/A Experienced any changes in pain level or No No No management Left Footwear Regular Shoe Right Footwear Regular Shoe Pain Scale: 0-10 Numeric Is Patient Pain Free? Yes Yes Yes Lower Extremity Assessment/ Foot Assessment/ Toe Nail Assessment Right -Posterior Tibial Palpable Yes -Dorsalis Pedis Palpable Yes -Extremity Color Hyperpigmented -Hair Growth on Legs Yes -Hair Growth on Toes Yes -Temperature of Extremity Warm -Capillary Refill Less than 3 Seconds -Dependent Rubor No -Blanched when Elevated No -Lipodermatosclerosis No -Other Deformity No -Prior Foot Ulcer No -Charcot Joint No -Prior Amputation No -Thick No -Discolored No -Deformed No -Improper Length & Hygeine Yes Left -Posterior Tibial Palpable Yes -Dorsalis Pedis Palpable Yes -Extremity Color Hyperpigmented -Hair Growth on Legs Yes -Hair Growth on Toes Yes -Temperature of Extremity Warm -Capillary Refill Less than 3 Seconds -Dependent Rubor No -Blanched when Elevated No -Lipodermatosclerosis No -Other Deformity No -Prior Foot Ulcer No -Charcot Joint No -Prior Amputation No -Thick No -Discolored No -Deformed No -Improper Length & Hygeine Yes Neuropathy Assessment Feet - Top Side and Bottom <Entered> (a) Communication Assessment Preferred language Kiswahili Bass 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 Maker Required No Able to Read Yes Able to Write Yes Communication Tools None Caregiver Communication Skills No Impairment Impairment Right Hearing Abillity Normal Left Hearing Abillity Normal Visual Assistive Devices Glasses Teaching Assessment Preferences Verbal,Written, Demonstration Barriers to Learning None Readiness To Learn Good Willingness to Engage in Self Management Med Activies Readiness to Engage in Self Management Med Activities Anxiety Level Calm Cooperation Cooperative Perception Coherent Interest in Health Problem Asks Questions Education Importance Acknowledges Need Does Patient Smoke tobacco or other No substances Smoking Status Never smoker Is Patient Diabetic Yes Functional Assessment Recent Decline in Ability to Perform Denies Any Declines Assistive Device With Patient No Culture/Mu-Ism/Hot Strip Finisher Cultural/Mu-Ism Needs that may affect No Treatment Plan Would you allow our hospital rod finisher to No meet you for the purpose of spiritual/ emotional support? Hot Strip Finisher to contact place of scientologist No Teaching: Wound Center *Welcome to the Wound Center -Person Taught Patient -Teaching Method Discussion, Demonstration -Response to teaching Verbalize Understanding 04/03/25 11:15 WC - Today's Visit Information Type of service Follow-up Visit (Physician/DESIGN ENGINEER ) Arrival Mode Ambulatory Transfer Assistance None Patient Identification Verified (Name & Yes ) Patient Requires Transmission-Based No Precautions Height and Weight Height Weight Weight in Pounds Body Mass Index (BMI) 55.1 BMI Classification Obese Vital Signs Temperature (97.8 F-99.1 F) 97.5 F L Temperature Source Temporal Pulse Rate (60-100) 87 Pulse Location Monitor Respiratory Rate (12-18) 18 Respiratory rate source Observation Blood Pressure (90/60-120/80) 149/79 H Blood Pressure Mean (mm Hg) 102 Source Position Blood Pressure Location History Since Last Visit- (Skip if this is Patient's initial visit) Have you changed medications since your No last visit? Any new allergies or adverse reactions No Had a fall/change in ADL's that may No increase risk of falls Signs or symptoms of abuse and/or No neglect since last visit Have you been in the hospital since your No last visit? Has dressing in place as prescribed Yes Has compression in place as prescribed Yes Has offloadiing in place as prescribed N/A Experienced any changes in pain level or No management Left Footwear Right Footwear Pain Scale: 0-10 Numeric Is Patient Pain Free? Yes Lower Extremity Assessment/ Foot Assessment/ Toe Nail Assessment Right -Posterior Tibial Palpable -Dorsalis Pedis Palpable -Extremity Color -Hair Growth on Legs -Hair Growth on Toes -Temperature of Extremity -Capillary Refill -Dependent Rubor -Blanched when Elevated -Lipodermatosclerosis -Other Deformity -Prior Foot Ulcer -Charcot Joint -Prior Amputation -Thick -Discolored -Deformed -Improper Length & Hygeine Left -Posterior Tibial Palpable -Dorsalis Pedis Palpable -Extremity Color -Hair Growth on Legs -Hair Growth on Toes -Temperature of Extremity -Capillary Refill -Dependent Rubor -Blanched when Elevated -Lipodermatosclerosis -Other Deformity -Prior Foot Ulcer -Charcot Joint -Prior Amputation -Thick -Discolored -Deformed -Improper Length & Hygeine Neuropathy Assessment Feet - Top Side and Bottom Communication Assessment Preferred plant electrician Required Able to Read Able to Write Communication Tools Caregiver Communication Skills Impairment Right Hearing Abillity Left Hearing Abillity Visual Assistive Devices Teaching Assessment Preferences Barriers to Learning Readiness To Learn Willingness to Engage in Self Management Activies Readiness to Engage in Self Management Activities Anxiety Level Cooperation Perception Interest in Health Problem Education Importance Does Patient Smoke tobacco or other substances Smoking Status Is Patient Diabetic Functional Assessment Recent Decline in Ability to Perform Assistive Device With Patient Culture/Mu-Ism/Hot Strip Finisher Cultural/Mu-Ism Needs that may affect Treatment Plan Would you allow our hospital rod finisher to meet you for the purpose of spiritual/ emotional support? Hot Strip Finisher to contact place of scientologist Teaching: Wound Center *Welcome to the Wound Center -Person Taught -Teaching Method -Response to teaching (a) 1 - + throughout WC - Nurse 1 - General Ulcer Measurement Start: 03/13/25 10:32 Freq: Status: Active Protocol: Activity Type Activity Date Activity User E-sign Co-sign Detail Recorded Client Recorded Date Recorded By Document 03/13/25 10:32 RB [id number] 03/13/25 10:42 RB Document 03/20/25 11:37 RB [id number] 03/20/25 11:43 RB Document 03/27/25 11:08 DL [id number] 03/27/25 11:18 DL Document 04/03/25 11:15 DL [id number] 04/03/25 11:21 DL 03/13/25 03/20/25 03/27/25 10:32 11:37 11:08 Wound Center Nurse 1 #4- lle posterior superior -Combined with other wound No -Current Size (cm) - Length 0.1 0.1 -Current Size (cm) - Width 0.1 0.1 -Current Size (cm) - Depth 0.1 0.1 -Total Square Cm 0.01 0.01 -Tunneling No -Undermining/Tunneling No -Circular Undermining No -Exudate Amt Medium None Present -Exudate Type Serosanguineous -Wound Margin Distinct, Outline Attached -Granulation Amt Medium (34-66%) -Granulation Quality [place] -Slough/Fibrin Yes No -Necrosis Amt Small (1-33%) None Present (0 %) -Necrotic Tissue Type Adherent Slough -Structure Exposed N/A -Texture (Cara-wound Skin Appearance) Assessed, Assessed Excoriation, Localized Edema -Moisture (Cara-wound Skin Appearance) Assessed Assessed -Color (Cara-wound Skin Appearance) Assessed Assessed -Temperature (Cara-wound Skin No Abnormality No Abnormality Appearance) (Pt Warm) (Pt Warm) -Tenderness on Palpation (Cara-wound No No Skin Appearance) -Ulcer Cleansing Rinsed/ Soap and Water Irrigated with Saline -Foul Odor after Cleansing No No -Anesthetic Used 5% Lidocaine 5% Lidocaine Gel Gel 3. RLE ant -Combined with other wound No No -Current Size (cm) - Length 0.1 0.1 1.9 -Current Size (cm) - Width 0.1 0.1 0.7 -Current Size (cm) - Depth 0.1 0.1 0.1 -Total Square Cm 0.01 0.01 1.33 -Photo Taken Yes -Tunneling No No -Undermining/Tunneling No No -Circular Undermining No No -Exudate Amt Medium Medium Small -Exudate Type Serosanguineous Serosanguineous Serosanguineous -Wound Margin Distinct, Distinct, Outline Outline Attached Attached -Granulation Amt Medium (34-66%) Medium (34-66%) -Granulation Quality [place] -Slough/Fibrin Yes Yes -Necrosis Amt Medium (34-66%) Medium (34-66%) Small (1-33%) -Necrotic Tissue Type Adherent Slough Adherent Slough Adherent Slough -Structure Exposed N/A N/A -Texture (Cara-wound Skin Appearance) Assessed, Assessed, Assessed Localized Edema Excoriation, Localized Edema -Moisture (Cara-wound Skin Appearance) Assessed Assessed Assessed -Color (Cara-wound Skin Appearance) Assessed Assessed Assessed -Temperature (Cara-wound Skin No Abnormality No Abnormality No Abnormality Appearance) (Pt Warm) (Pt Warm) (Pt Warm) -Tenderness on Palpation (Cara-wound No No No Skin Appearance) -Ulcer Cleansing Wound Cleanser Wound Cleanser Soap and Water -Foul Odor after Cleansing No No No -Anesthetic Used 4% Lidocaine 5% Lidocaine 5% Lidocaine Solution Gel Gel 2. LLE anterioir -Combined with other wound No No -Current Size (cm) - Length 5 3 1.5 -Current Size (cm) - Width 2.5 1 0.3 -Current Size (cm) - Depth 0.1 0.1 0.1 -Total Square Cm 12.5 3 0.45 -Photo Taken Yes -Tunneling No No -Undermining/Tunneling No No -Circular Undermining No No -Exudate Amt Large Medium Small -Exudate Type Serosanguineous Serosanguineous -Wound Margin Distinct, Distinct, Outline Outline Attached Attached -Granulation Amt Medium (34-66%) Medium (34-66%) Small (1-33%) -Granulation Quality [place] -Slough/Fibrin Yes Yes -Necrosis Amt Medium (34-66%) Medium (34-66%) Small (1-33%) -Necrotic Tissue Type Adherent Slough Adherent Slough Adherent Slough -Structure Exposed N/A N/A -Texture (Cara-wound Skin Appearance) Localized Edema Assessed, Assessed Excoriation, Localized Edema -Moisture (Cara-wound Skin Appearance) Assessed Assessed Assessed -Color (Cara-wound Skin Appearance) Assessed Assessed Assessed -Temperature (Cara-wound Skin No Abnormality No Abnormality No Abnormality Appearance) (Pt Warm) (Pt Warm) (Pt Warm) -Tenderness on Palpation (Cara-wound No No No Skin Appearance) -Ulcer Cleansing Wound Cleanser Wound Cleanser Soap and Water -Foul Odor after Cleansing No No No -Anesthetic Used 4% Lidocaine 5% Lidocaine 5% Lidocaine Solution Gel Gel 1. LLE post ionferior -Combined with other wound No No -Current Size (cm) - Length 1.5 0.4 0.1 -Current Size (cm) - Width 3.5 1.5 0.1 -Current Size (cm) - Depth 0.1 0.1 0.1 -Total Square Cm 5.25 0.60 0.01 -Photo Taken Yes -Tunneling No No -Undermining/Tunneling No No -Circular Undermining No No -Exudate Amt Medium Medium None Present -Exudate Type Serosanguineous Serosanguineous -Wound Margin Distinct, Distinct, Outline Outline Attached Attached -Granulation Amt Medium (34-66%) Medium (34-66%) None Present (0 %) -Granulation Quality [place] -Slough/Fibrin Yes Yes -Necrosis Amt Medium (34-66%) Medium (34-66%) None Present (0 %) -Necrotic Tissue Type Adherent Slough Adherent Slough -Structure Exposed N/A N/A -Texture (Cara-wound Skin Appearance) Assessed, Assessed, Assessed Localized Edema Excoriation, Localized Edema -Moisture (Cara-wound Skin Appearance) Assessed Assessed Assessed -Color (Cara-wound Skin Appearance) Assessed Assessed Assessed -Temperature (Cara-wound Skin No Abnormality No Abnormality No Abnormality Appearance) (Pt Warm) (Pt Warm) (Pt Warm) -Tenderness on Palpation (Cara-wound No No No Skin Appearance) -Ulcer Cleansing Wound Cleanser Wound Cleanser Soap and Water -Foul Odor after Cleansing No No No -Anesthetic Used 4% Lidocaine 5% Lidocaine 5% Lidocaine Solution Gel Gel Lower Limb Edema Present Yes Yes Right Calf (cm) 47.5 46 46 Right Ankle (cm) 28 28.7 27.7 Left Calf (cm) 50.2 46.4 46.3 Left Ankle (cm) 30 29.2 30 04/03/25 11:15 Wound Center Nurse 1 #4- lle posterior superior -Combined with other wound -Current Size (cm) - Length -Current Size (cm) - Width -Current Size (cm) - Depth -Total Square Cm -Tunneling -Undermining/Tunneling -Circular Undermining -Exudate Amt -Exudate Type -Wound Margin -Granulation Amt -Granulation Quality -Slough/Fibrin -Necrosis Amt -Necrotic Tissue Type -Structure Exposed -Texture (Cara-wound Skin Appearance) -Moisture (Cara-wound Skin Appearance) -Color (Cara-wound Skin Appearance) -Temperature (Cara-wound Skin Appearance) -Tenderness on Palpation (Cara-wound Skin Appearance) -Ulcer Cleansing -Foul Odor after Cleansing -Anesthetic Used 3. RLE ant -Combined with other wound -Current Size (cm) - Length 0 -Current Size (cm) - Width 0 -Current Size (cm) - Depth 0 -Total Square Cm 0 -Photo Taken Yes -Tunneling -Undermining/Tunneling -Circular Undermining -Exudate Amt None Present -Exudate Type -Wound Margin Flat & Intact -Granulation Amt Large (67-100%) -Granulation Quality [place] -Slough/Fibrin -Necrosis Amt None Present (0 %) -Necrotic Tissue Type -Structure Exposed N/A -Texture (Cara-wound Skin Appearance) Scarring -Moisture (Cara-wound Skin Appearance) No Abnormality -Color (Cara-wound Skin Appearance) Hemosiderin Staining -Temperature (Cara-wound Skin No Abnormality Appearance) (Pt Warm) -Tenderness on Palpation (Cara-wound No Skin Appearance) -Ulcer Cleansing -Foul Odor after Cleansing No -Anesthetic Used 2. LLE anterioir -Combined with other wound -Current Size (cm) - Length 0 -Current Size (cm) - Width 0 -Current Size (cm) - Depth 0 -Total Square Cm 0 -Photo Taken Yes -Tunneling -Undermining/Tunneling -Circular Undermining -Exudate Amt None Present -Exudate Type -Wound Margin Flat & Intact -Granulation Amt Large (67-100%) -Granulation Quality [place] -Slough/Fibrin -Necrosis Amt None Present (0 %) -Necrotic Tissue Type -Structure Exposed N/A -Texture (Cara-wound Skin Appearance) Scarring -Moisture (Cara-wound Skin Appearance) No Abnormality -Color (Cara-wound Skin Appearance) Hemosiderin Staining -Temperature (Cara-wound Skin No Abnormality Appearance) (Pt Warm) -Tenderness on Palpation (Cara-wound Skin Appearance) -Ulcer Cleansing -Foul Odor after Cleansing No -Anesthetic Used 1. LLE post ionferior -Combined with other wound -Current Size (cm) - Length -Current Size (cm) - Width -Current Size (cm) - Depth -Total Square Cm -Photo Taken -Tunneling -Undermining/Tunneling -Circular Undermining -Exudate Amt -Exudate Type -Wound Margin -Granulation Amt -Granulation Quality -Slough/Fibrin -Necrosis Amt -Necrotic Tissue Type -Structure Exposed -Texture (Cara-wound Skin Appearance) -Moisture (Cara-wound Skin Appearance) -Color (Cara-wound Skin Appearance) -Temperature (Cara-wound Skin Appearance) -Tenderness on Palpation (Cara-wound Skin Appearance) -Ulcer Cleansing -Foul Odor after Cleansing -Anesthetic Used Lower Limb Edema Present Right Calf (cm) 41 Right Ankle (cm) 25 Left Calf (cm) 41 Left Ankle (cm) 28.5 WC - Nurse 2 - General Ulcer CM Notes Start: 03/13/25 10:32 Freq: Status: Active Protocol: Activity Type Activity Date Activity User E-sign Co-sign Detail Recorded Client Recorded Date Recorded By Document 03/13/25 11:03 [facility] [id number] 03/13/25 11:19 BM Document 03/20/25 11:57 BM [id number] 03/20/25 12:10 BMF Document 03/27/25 11:33 BM [id number] 03/27/25 11:38 BM Document 04/03/25 11:38 BM [id number] 04/03/25 11:41 [facility] 03/13/25 03/20/25 03/27/25 11:03 11:57 11:33 Wound Center Nurse 2 #4- lle posterior superior -Time 11:13 12:00 11:34 -Correct Patient Yes Yes -Correct Side, Site, Position Yes Yes -Correct Procedure Yes Yes -Procedure Performed Yes Yes No -Type of Procedure Debridement Debridement -Clinical Debridement Subcutaneous Subcutaneous -Tissue Removed Subcutaneous Subcutaneous -Post Debridement (cm) - Length 2 6 0 -Post Debridement (cm) - Width 3.5 4 0 -Post Debridement (cm) - Depth 0.1 0.1 0 -Total Square (Post) (cm) 7.0 24 0 -Area of Debridement (cm) - Length 2 6 0 -Area of Debridement (cm) - Width 3.5 4 0 -Total Square (Area) (cm) 7.0 24 0 -Tunneling No No -Undermining/Tunneling No No -Circular Undermining No No -Wound/Ulcer Outcome Not Healed Not Healed Healed- Epithelialized -Ulcer Cleansing Rinsed/ Rinsed/ Irrigated with Irrigated with Saline Saline -Foul Odor after Cleansing No No -Bioengineered Tissue No No -Bleeding Controlled with Pressure Pressure NA -Treatment Response Procedure Procedure Tolerated Well Tolerated Well -Debridement - Subq, 1st 20sq cm Yes No -Debridement, SubQ, ea addt'l 20sq cm 1 or part thereof 3. RLE ant -Time 11:11 12:02 11:36 -Correct Patient Yes Yes Yes -Correct Side, Site, Position Yes Yes Yes -Correct Procedure Yes Yes Yes -Procedure Performed Yes Yes Yes -Type of Procedure Debridement Debridement Debridement -Clinical Debridement Subcutaneous Subcutaneous Epidermis / Dermis -Tissue Removed Subcutaneous Subcutaneous Epidermis, Dermis -Post Debridement (cm) - Length 12.5 1 2.5 -Post Debridement (cm) - Width 1 0.5 0.1 -Post Debridement (cm) - Depth 0.1 0.1 0.1 -Total Square (Post) (cm) 12.5 0.5 0.25 -Area of Debridement (cm) - Length 12.5 1 2.5 -Area of Debridement (cm) - Width 1 0.5 0.1 -Total Square (Area) (cm) 12.5 0.5 0.25 -Tunneling No No No -Undermining/Tunneling No No No -Circular Undermining No No No -Wound/Ulcer Outcome Not Healed Not Healed Not Healed -Ulcer Cleansing Rinsed/ Rinsed/ Rinsed/ Irrigated with Irrigated with Irrigated with Saline Saline Saline -Foul Odor after Cleansing No No No -Bioengineered Tissue No No No -Bleeding Controlled with Pressure Pressure Pressure -Treatment Response Procedure Procedure Procedure Tolerated Well Tolerated Well Tolerated Well -Debridement - Open, 1st 20sq cm Yes -Debridement, Open, ea addt'l 20sq cm 5 or part thereof -Debridement - Subq, 1st 20sq cm No No 2. LLE anterioir -Time 11:11 12:01 11:36 -Correct Patient Yes Yes Yes -Correct Side, Site, Position Yes Yes Yes -Correct Procedure Yes Yes Yes -Procedure Performed Yes Yes Yes -Type of Procedure Debridement Debridement Debridement -Clinical Debridement Subcutaneous Subcutaneous Epidermis / Dermis -Tissue Removed Subcutaneous Subcutaneous Epidermis, Dermis -Post Debridement (cm) - Length 6.5 3.5 10 -Post Debridement (cm) - Width 2.5 1.5 12 -Post Debridement (cm) - Depth 0.1 0.2 0.1 -Total Square (Post) (cm) 16.25 5.25 120 -Area of Debridement (cm) - Length 6.5 3.5 10 -Area of Debridement (cm) - Width 2.5 1.5 12 -Total Square (Area) (cm) 16.25 5.25 120 -Tunneling No No No -Undermining/Tunneling No No No -Circular Undermining No No No -Wound/Ulcer Outcome Not Healed Not Healed Not Healed -Ulcer Cleansing Rinsed/ Rinsed/ Irrigated with Irrigated with Saline Saline -Foul Odor after Cleansing No No -Bioengineered Tissue No No -Bleeding Controlled with Pressure Pressure Pressure -Treatment Response Procedure Procedure Procedure Tolerated Well Tolerated Well Tolerated Well -Debridement - Open, 1st 20sq cm No -Debridement - Subq, 1st 20sq cm No No 1. LLE post ionferior -Time 11:15 12:02 11:34 -Correct Patient Yes Yes -Correct Side, Site, Position Yes Yes -Correct Procedure Yes Yes -Procedure Performed Yes Yes No -Type of Procedure Debridement Debridement -Clinical Debridement Subcutaneous Subcutaneous -Tissue Removed Subcutaneous Subcutaneous -Post Debridement (cm) - Length 1.5 1.5 -Post Debridement (cm) - Width 4 3 -Post Debridement (cm) - Depth 0.1 0.1 -Total Square (Post) (cm) 6.0 4.5 -Area of Debridement (cm) - Length 1.5 1.5 -Area of Debridement (cm) - Width 1 3 -Total Square (Area) (cm) 1.5 4.5 -Tunneling No No -Undermining/Tunneling No No -Circular Undermining No No -Wound/Ulcer Outcome Not Healed Not Healed Healed- Epithelialized -Ulcer Cleansing Rinsed/ Rinsed/ Irrigated with Irrigated with Saline Saline -Foul Odor after Cleansing No No -Bioengineered Tissue No No -Bleeding Controlled with Pressure Pressure NA -Treatment Response Procedure Procedure Tolerated Well Tolerated Well -Debridement - Subq, 1st 20sq cm No Yes -Debridement, SubQ, ea addt'l 20sq cm 1 or part thereof Pain Scale: 0-10 Numeric Is Patient Pain Free? Yes Yes Yes 04/03/25 11:38 Wound Center Nurse 2 #4- lle posterior superior -Time -Correct Patient -Correct Side, Site, Position -Correct Procedure -Procedure Performed -Type of Procedure -Clinical Debridement -Tissue Removed -Post Debridement (cm) - Length -Post Debridement (cm) - Width -Post Debridement (cm) - Depth -Total Square (Post) (cm) -Area of Debridement (cm) - Length -Area of Debridement (cm) - Width -Total Square (Area) (cm) -Tunneling -Undermining/Tunneling -Circular Undermining -Wound/Ulcer Outcome -Ulcer Cleansing -Foul Odor after Cleansing -Bioengineered Tissue -Bleeding Controlled with -Treatment Response -Debridement - Subq, 1st 20sq cm -Debridement, SubQ, ea addt'l 20sq cm or part thereof 3. RLE ant -Time 11:38 -Correct Patient -Correct Side, Site, Position -Correct Procedure -Procedure Performed No -Type of Procedure -Clinical Debridement -Tissue Removed -Post Debridement (cm) - Length 0 -Post Debridement (cm) - Width 0 -Post Debridement (cm) - Depth 0 -Total Square (Post) (cm) 0 -Area of Debridement (cm) - Length 0 -Area of Debridement (cm) - Width 0 -Total Square (Area) (cm) 0 -Tunneling -Undermining/Tunneling -Circular Undermining -Wound/Ulcer Outcome Healed- Epithelialized -Ulcer Cleansing -Foul Odor after Cleansing -Bioengineered Tissue -Bleeding Controlled with -Treatment Response -Debridement - Open, 1st 20sq cm -Debridement, Open, ea addt'l 20sq cm or part thereof -Debridement - Subq, 1st 20sq cm 2. LLE anterioir -Time 11:39 -Correct Patient -Correct Side, Site, Position -Correct Procedure -Procedure Performed No -Type of Procedure -Clinical Debridement -Tissue Removed -Post Debridement (cm) - Length 0 -Post Debridement (cm) - Width 0 -Post Debridement (cm) - Depth 0 -Total Square (Post) (cm) 0 -Area of Debridement (cm) - Length 0 -Area of Debridement (cm) - Width 0 -Total Square (Area) (cm) 0 -Tunneling -Undermining/Tunneling -Circular Undermining -Wound/Ulcer Outcome Healed- Epithelialized -Ulcer Cleansing -Foul Odor after Cleansing -Bioengineered Tissue -Bleeding Controlled with -Treatment Response -Debridement - Open, 1st 20sq cm -Debridement - Subq, 1st 20sq cm 1. LLE post ionferior -Time -Correct Patient -Correct Side, Site, Position -Correct Procedure -Procedure Performed -Type of Procedure -Clinical Debridement -Tissue Removed -Post Debridement (cm) - Length -Post Debridement (cm) - Width -Post Debridement (cm) - Depth -Total Square (Post) (cm) -Area of Debridement (cm) - Length -Area of Debridement (cm) - Width -Total Square (Area) (cm) -Tunneling -Undermining/Tunneling -Circular Undermining -Wound/Ulcer Outcome -Ulcer Cleansing -Foul Odor after Cleansing -Bioengineered Tissue -Bleeding Controlled with -Treatment Response -Debridement - Subq, 1st 20sq cm -Debridement, SubQ, ea addt'l 20sq cm or part thereof Pain Scale: 0-10 Numeric Is Patient Pain Free? Yes WC - Nurse 3 - General Ulcer D/C NN Start: 03/13/25 10:32 Freq: Status: Active Protocol: Activity Type Activity Date Activity User E-sign Co-sign Detail Recorded Client Recorded Date Recorded By Document 03/13/25 11:27 MT [id number] 03/13/25 11:33 MT Document 03/20/25 12:17 [id number] 03/20/25 12:19 Document 03/27/25 11:49 BMF [id number] 03/27/25 11:50 BMF Document 04/03/25 11:46 BM [id number] 04/03/25 11:46 BM 03/13/25 03/20/25 03/27/25 11:27 12:17 11:49 Wound Care Center Nurse 3 #4- lle posterior superior -Ulcer Cleansing Soap and Water -Foul Odor after Cleansing No -Negative Pressure Wound Therapy N/A -Primary Dressing Applied Other NonAdherent Contact Layer, Silicone Border Foam 4x4 -Other Dressing xeroform -Primary Dressing Covered/Secured with Dry Gauze,Dry Gauze & Roll Gauze,Secured with Tape -Silicone Border Foam 4x4 1 -Wound Comment(s) xeroform, tubigrip 3. RLE ant -Ulcer Cleansing Rinsed/ Irrigated with Saline -Foul Odor after Cleansing No -Primary Dressing Applied Silicone Border NonAdherent Foam 4x4 Contact Layer, Silicone Border Foam 4x4 -Primary Dressing Covered/Secured with Dry Gauze,Dry Gauze & Roll Gauze,Secured with Tape -Silicone Border Foam 4x4 1 1 -Wound Comment(s) xeroform to all wounds 2. LLE anterioir -Ulcer Cleansing Rinsed/ Irrigated with Saline -Foul Odor after Cleansing No -Primary Dressing Applied Silicone Border NonAdherent Foam 4x4 Contact Layer -Other Dressing used pts own foam/silicone border drsg -Silicone Border Foam 4x4 1 1. LLE post ionferior -Primary Dressing Applied Silicone Border Foam 4x4 -Primary Dressing Covered/Secured with Dry Gauze,Dry Gauze & Roll Gauze,Secured with Tape -Silicone Border Foam 4x4 1 -Wound Comment(s) xeroform to all wounds top with abds BLE -Tubular Bandage Double Layer Double Layer Double Layer -Size of Tubigrip Used Size F Size F Size F -Size F ($) 2 4 2 Treatment Response Procedure Tolerated Well Pain Scale: 0-10 Numeric Is Patient Pain Free? Yes Yes Yes WC - Visit Discharge Discharge Condition Stable Stable Stable Ambulatory Status Ambulatory Ambulatory Ambulatory Transportation Private Auto Private Auto Private Auto Medication Reconcilliation completed & No No provided to patient/care provider Clinical Summary of Care Provided Yes Yes Notes: pt verbalizes understanding of new wound orders. 04/03/25 11:46 Wound Care Center Nurse 3 #4- lle posterior superior -Ulcer Cleansing -Foul Odor after Cleansing -Negative Pressure Wound Therapy -Primary Dressing Applied -Other Dressing -Primary Dressing Covered/Secured with -Silicone Border Foam 4x4 -Wound Comment(s) 3. RLE ant -Ulcer Cleansing -Foul Odor after Cleansing -Primary Dressing Applied -Primary Dressing Covered/Secured with -Silicone Border Foam 4x4 -Wound Comment(s) 2. LLE anterioir -Ulcer Cleansing -Foul Odor after Cleansing -Primary Dressing Applied -Other Dressing -Silicone Border Foam 4x4 1. LLE post ionferior -Primary Dressing Applied -Primary Dressing Covered/Secured with -Silicone Border Foam 4x4 -Wound Comment(s) BLE -Tubular Bandage Double Layer -Size of Tubigrip Used Size F -Size F ($) 2 Treatment Response Procedure Tolerated Well Pain Scale: 0-10 Numeric Is Patient Pain Free? Yes WC - Visit Discharge Discharge Condition Stable Ambulatory Status Ambulatory Transportation Private Auto Medication Reconcilliation completed & provided to patient/care provider Clinical Summary of Care Provided Notes: healed, discharged Assessment/Plan Assessment/Plan (1) Nonhealing ulcer of left lower leg: CODE(S): L97.929 - Non-pressure chronic ulcer of unspecified part of left lower leg with unspecified severity QUALIFIERS: Non-pressure ulcer stage: with fat layer exposed Qualified Code(s): L97.922 - Non-pressure chronic ulcer of unspecified part of left lower leg with fat layer exposed (2) Nonhealing ulcer of right lower leg: CODE(S): L97.919 - Non-pressure chronic ulcer of unspecified part of right lower leg with unspecified severity QUALIFIERS: Non-pressure ulcer stage: with fat layer exposed Qualified Code(s): L97.912 - Non-pressure chronic ulcer of unspecified part of right lower leg with fat layer exposed (3) Edema of both lower legs: CODE(S): R60.0 - Localized edema (4) Peripheral vascular disease: CODE(S): I73.9 - Peripheral vascular disease, unspecified PLAN: Patient is to continue wearing the compression stockings and elevating and continue the body washes for the staph infections otherwise she is discharged from the wound center and she can follow-up as needed
--- NOTE | 2025-04-04 08:29 | WC ---
PHOTO-RLE ANT 04/03/25
--- NOTE | 2025-04-04 08:30 | WC ---
PHOTO-RLE ANKLE 04/03/25
== END 2025-04-03 13:24 | disposition home or self-care (01) ==
LOC: WC 11:00
PROVIDERS: PCP Nurse Practitioner Family; Referring Provider Nurse Practitioner Family
DX: R60.0 Localized edema (principal); L97.912 Non-pressure chronic ulcer of unspecified part of right lower leg with fat layer exposed; L97.922 Non-pressure chronic ulcer of unspecified part of left lower leg with fat layer exposed; L03.115 Cellulitis of right lower limb; L03.116 Cellulitis of left lower limb; I73.9 Peripheral vascular disease, unspecified; Z79.899 Other long term (current) drug therapy; Z86.14 Personal history of Methicillin resistant Staphylococcus aureus infection
CPT/HCPCS: 11042; 11045; 87070; 87075; 87077; 87186; 87205; 93923; 93970; 97597; 97598; 99204; 99213; G0463